=== PATIENT | female | born 1930 | race Caucasian/White ===

== ENCOUNTER 2016-09-23 23:50 | Observation (INO) | payer MEDICARE ==
--- NOTE | ~2016-09-23 | HP ---
Unit #: [id number] #: [id number] Patient: MAXWELL CAMPOVERDE [id number] [facility]. [address] [place], [place] [address] [id number] I MR#: [id number] NAME: MAXWELL CAMPOVERDE ROOM: 555 Age: 85 Sex: F Admission Date: 09/24/2016 : 1930 Attending Physician: Deshawn Sosa M.D. Primary Care Physician: Mohamud Kuhn M.D. HISTORY AND PHYSICAL HISTORY OF PRESENT ILLNESS This is a pleasant 85-year-old female who presented to the emergency room with complaints of chest pain. She has a past medical history of hypertension, hyperlipidemia, GERD, COPD, CVA, seizures and coronary artery disease. Patient underwent cardiac catheterization in August of 2009 where she was found to have a 75% proximal LAD, 60% to 70% in-stent stenosis of the mid LAD and 70% to 75% in-stent stenosis of the left circumflex. According to the patient, she did have stents to the mid LAD and mid left circumflex 2008 in [place] and underwent repeat stenting in 2009. Last echocardiogram 2007 showed an LVEF of 60% to 65%, mild AR. In 2009 the patient did undergo angioplasty with stent insertion using a drug-eluting stent to the proximal LAD and the mid LAD in-stent stenosis. She also underwent angioplasty with stent insertion of the left circumflex coronary artery. The patient states she was sitting at home watching Dancing with the Stars yesterday evening when she developed sudden onset chest pain. She describes it as aching. It was associated with shortness of breath. She denies any radiation of the pain, palpitation, syncope or near syncope or nausea and vomiting. She reports the pain lasted approximately 20 to 25 minutes when he daughter encouraged her to come to the emergency room for evaluation. In the emergency room she received sublingual nitroglycerin with relief of her pain, as well as aspirin. Initial EKG shows normal sinus rhythm, 78 beats per minute, no acute ischemic change. Point of care troponins have been negative. It is notable the patient does have some unilateral lower extremity swelling in the left lower extremity but no redness or erythema. At present she is resting in bed. She denies any further complaints of chest pain or tightness and she states she just wants to go back to her home. PAST MEDICAL HISTORY 1. Coronary artery disease. Apparently stents placed in [place] in 2009. 2. Repeat cardiac catheterization in 2009. She was noted to have proximal LAD stenosis, in-stent stenosis in the mid LAD and near stenosis in the mid circumflex. She underwent angioplasty with stent insertion in August 2009 with a drug-eluting stent for proximal LAD and mid LAD in-stent stenosis. She also underwent angioplasty with stent insertion of the circumflex coronary artery. 3. Two-D echocardiogram 2007 shows an LVEF of 60% to 65%, mild AR and Unit #: [id number] #: [id number] Patient: MAXWELL CAMPOVERDE mild LVH. 4. Hypertension. 5. Hyperlipidemia. 6. COPD. 7. History of CVA. 8. History of seizures. 9. GI bleed following angioplasty in 2009 with multiple gastric body ulcers and positive H. pylori. PAST SURGICAL HISTORY 1. Right carotid endarterectomy in 2009. 2. Cardiac cath with stent placements. 3. Left hip surgery. SOCIAL HISTORY The patient currently states she lives with her daughter. She uses a walker on occasion. She is a lifelong nonsmoker, denies any illicit drugs or alcohol. FAMILY HISTORY Family history is negative for coronary artery disease. Mother had colon cancer. ALLERGIES Penicillin, sulfa, procaine, orange juice. HOME MEDICATIONS 1. Phenobarbital 32.4 mg p.o. b.i.d. 2. Multivitamin one p.o. daily. 3. Vimpat 100 mg p.o. b.i.d. 4. Plavix 75 mg p.o. daily. 5. Aricept 10 mg p.o. q.h.s. 6. Trazodone 25 mg p.o. q.h.s. 7. Levothyroxine 25 mcg p.o. daily. 8. Zocor 20 mg p.o. daily. 9. Metoprolol tartrate 25 mg p.o. daily. 10. Hydrochlorothiazide 12.5 mg p.o. daily. However, according to the chart, the patient has not had her levothyroxine or her hydrochlorothiazide filled since July. PHYSICAL EXAMINATION GENERAL: This is an elderly female who is awake, alert and oriented. She is in no acute distress. NECK: Trachea is midline. No JVD. No thyromegaly or lymphadenopathy. No carotid bruits. She does have a scar on the right neck from prior carotid endarterectomy. CHEST: S1, S2. No murmur, gallop or rub. LUNGS: Clear to auscultation. Fine crackles in the left lower lobe. BACK: The patient does have severe kyphosis. ABDOMEN: Soft, nontender and nondistended. Bowel sounds are present. No hepatosplenomegaly or masses. EXTREMITIES: Pulses are palpable. She does have unilateral swelling, left greater than the right, and no clubbing or cyanosis. NEUROLOGIC: She is awake, alert and oriented. She moves all extremities equally, follows commands with ease. DIAGNOSTIC STUDIES Unit #: [id number] #: [id number] Patient: MAXWELL CAMPOVERDE IMAGING: Chest x-ray shows low lung volumes, large hiatal hernia and otherwise no active disease. LABORATORY: Point of care troponin negative x2. Sodium 137, potassium 4.0, chloride 104, CO2 26, BUN 14, creatinine 1.0, glucose 145, hemoglobin 10.8, hematocrit 33.1, WBC 7.3, platelet count 260. CARDIOVASCULAR: EKG shows normal sinus rhythm, rate of 78 beats per minute, QTc interval 417 msec. No acute ischemia noted. ASSESSMENT 1. Chest pain, rule out myocardial infarction. 2. Lower leg extremity swelling, rule out deep venous thrombosis. 3. Known coronary artery disease with stent insertion in proximal left anterior descending and mid left anterior descending as well as left circumflex in 2009. 4. History of right carotid endarterectomy. 5. History of seizure disorder. 6. Anemia of chronic disease. PLAN The patient has been admitted for chest pain. She does have a known history of coronary artery disease with stent placement in 2009, therefore will recommend that she undergo Lexiscan Cardiolite today. If the Lexiscan is normal, would need to consider repeat cardiac catheterization if the patient is agreeable; will also check 2D echocardiogram for assessment of LVEF and for any valvular abnormality. The patient will also get a venous Doppler of the left lower extremity due to her unilateral swelling to rule out any evidence of DVT. She will be also started on a small dose of diuretic after her stress test. For now the patient will be continued on Plavix. Will add low dose aspirin as well as check fasting lipid panel as it appear the patient is not currently on any statin therapy and does have a history of hyperlipidemia. Further recommendations to follow pending the outcome of the exercise Cardiolite. Dictated by Julia Schultz A.P.R.N. for Alondra Mackenzie/yovana TD: 09/24/2016 15:38 JOB #: [id number] HISTORY AND PHYSICAL Page 1 of 1 X Julia Schultz APRN X HISTORY AND PHYSICAL
--- NOTE | ~2016-09-23 | ST ---
Unit #: [id number] #: [id number] Patient: MAXWELL CAMPOVERDE [id number] [facility]. [address] [address] [id number] I MR#: [id number] NAME: MAXWELL CAMPOVERDE : 1930 SEX: F STUDY DATE/TIME: 09/24/2016 UNIT: C5B ROOM: [facility] STUDY DESCRIPTION: Lexiscan stress test Attending Physician: Deshawn Sosa M.D. Primary Care Physician: Mohamud Kuhn M.D. CARDIOLOGY REPORT PROCEDURE PERFORMED EKG portion of a Lexiscan Cardiolite stress test. REASON FOR EXAM History of chest pain with coronary artery disease, myocardial infarction status post PCI and stents. DISCUSSION Baseline EKG reveals sinus rhythm with a ventricular rate of 69 beats per minute. Nonspecific ST-T wave changes noted. A total of 0.4 mg of Lexiscan was injected per protocol, followed by Cardiolite. There were no complaints of chest pain. There were occasional premature ventricular complexes noted. There were no ST or T wave changes to suggest ischemia. The maximal heart rate was 122 beats per minute with a maximal blood pressure of 155/82 mmHg. The test was stopped due to protocol completion. IMPRESSION 1. Negative EKG portion of Lexiscan Cardiolite stress test. 2. There were no complaints of chest pain. 3. There were no sustained arrhythmias noted except for occasional PVCs. 4. There were no ST or T wave changes to suggest ischemia. 5. Please correlate with Cardiolite images. Dictated by... Megan Figueroa APRN for Celena Chávez M.D. TR/maggie TD: 09/25/2016 15:32 JOB #: [id number] Unit #: [id number] #: [id number] Patient: MAXWELL CAMPOVERDE CARDIOLOGY REPORT Page 1 of 1 X CARDIOLOGY REPORT
--- NOTE | ~2016-09-23 | TH ---
Unit #: [id number] #: [id number] Patient: MAXWELL CAMPOVERDE [id number] [address] [address] [id number] I MR#: [id number] NAME: MAXWELL CAMPOVERDE : 1930 SEX: F STUDY DATE/TIME: 09/24/2016 UNIT: C5B ROOM: [facility] STUDY DESCRIPTION: Imaging Study Attending Physician: Deshawn Sosa M.D. Primary Care Physician: Mohamud Kuhn M.D. CARDIOLOGY REPORT EXAM Lexiscan Cardiolite stress test, nuclear portion DESCRIPTION OF PROCEDURE AND FINDINGS Using [id number] Cardiolite rest and stress SPECT images were obtained. Multiple SPECT images were obtained in various views including horizontal and vertical long axis and short axis views of the left ventricle. Images were obtained by gated SPECT method. Patient was administered 11.0 mCi of Cardiolite at rest. Patient was administered 29.8 mCi of Cardiolite after Lexiscan infusion was completed. On the stress images there is a small area of severe decreased tracer uptake activity involving the anteroapical wall. The rest images show normal perfusion. Comparing rest and stress images there is suspicion for stress-induced ischemia involving the anteroapical wall of the left ventricle. The left ventricular ejection fraction is calculated to be 76%. There is no focal wall motion abnormality seen. CONCLUSION 1. There is suspicion for stress-induced ischemia involving the anteroapical wall of the left ventricle. 2. The left ventricular ejection fraction is calculated to be 76%. 3. There is no focal wall motion abnormality seen. 4. Abnormal Lexiscan-Cardiolite stress test. Technically limited study due to patient's body habitus. Clinical correlation is requested. Dictated by... Alondra Mackenzie TD: 09/24/2016 22:20 JOB #: [id number] Unit #: [id number] #: [id number] Patient: MAXWELL CAMPOVERDE CARDIOLOGY REPORT Page 1 of 1 X Celena Chávez MD <ELECTRONICALLY SIGNED> 12/28/16 1429 CARDIOLOGY REPORT
--- NOTE | ~2016-09-23 | EKG ---
PATIENT: MAXWELL CAMPOVERDE UNIT #: [id number] Ventricular Rate: 78 BPM Atrial Rate: 78 BPM P-R Interval: 146 ms QRS Duration: 66 ms Q-T Interval: 366 ms QTC Calculation(Bezet): 417 ms P [place]: 53 degrees Calculated R [place]: -18 degrees Calculated T [place]: 41 degrees Diagnosis Line: Normal sinus rhythm Diagnosis Line: Normal ECG Diagnosis Line: When compared with ECG of 28-JUN-2016 18:09, Diagnosis Line: No significant change was found Diagnosis Line: Confirmed by RANDI DUVALL MD ([id number]) on Diagnosis Line: 09/25/2016 5:40:26 AM INTERPRETING FRANCESCO ARCE
--- NOTE | ~2016-09-23 | DS ---
Unit #: [id number] #: [id number] Patient: MAXWELL CAMPOVERDE [id number] [facility]. [address] [place], [place] [address] [id number] I MR#: [id number] NAME: MAXWELL CAMPOVERDE ROOM: 555 Age: 85 Sex: F Admission Date: 09/24/2016 : 1930 Discharge Date: 09/25/2016 Attending Physician: Deshawn Sosa M.D. Primary Care Physician: Mohamud Kuhn M.D. DISCHARGE SUMMARY DISCHARGE DIAGNOSES 1. Chest pain, ruled out for myocardial infarction. 2. Abnormal Lexiscan Cardiolite stress test on September 24, 2016 with suspicion for stress-induced ischemia involving the anteroapical wall of the left ventricle. Left ventricular ejection fraction 76%. 3. Coronary artery disease, status post cardiac catheterization on September 25, 2016, per Dr. Sosa, revealed left main normal. Left anterior descending coronary artery with long stent extending from the proximal to mid segment. Segment of the stent in the proximal artery widely patent. Mid left anterior descending coronary artery segment of the stent 40% to 50%. Sectional area of reduction. Distal half of left anterior descending coronary artery normal. Septal perforators and diagonal branches normal. Previous stent in the proximal left anterior descending coronary artery widely patent. Left circumflex abnormal. First obtuse marginal left circumflex shows presence of an intracoronary stent with focal 70% to 75% stenosis beyond which the vessel is small in caliber but short distribution, may be a decent target. Previous stent in obtuse marginal one with distal subsection showing focal in-stent restenosis. Normal ventricular systolic function. Angiography unchanged from previous procedure seven years ago. Started on nitrates. Consider angiotensin converting enzymes inhibitor after recovery from contrast-induced nephropathy if any in six to eight weeks. 4. A 2D echocardiogram revealed normal ejection fraction with moderate aortic regurgitation. Final report pending. 5. History of multiple percutaneous coronary interventions and stents. 6. Hypertension. 7. Hyperlipidemia, uncontrolled. 8. Chronic obstructive pulmonary disease. 9. History of (1) . 10. History of seizures. 11. History of gastrointestinal bleed following angioplasty in 2009 with multiple gastric body ulcers and positive Helicobacter pylori. 12. Nonsmoker. 13. Mild dementia. 14. Hypothyroidism. 15. Mild acute on chronic diastolic congestive heart failure, resolved. 16. Cerebrovascular accident. 17. Right carotid endarterectomy. DISCHARGE MEDICATIONS 1. Vimpat 100 mg p.o. b.i.d. 2. Desyrel 25 mg p.o. nightly. Unit #: [id number] #: [id number] Patient: MAXWELL CAMPOVERDE 3. Phenobarbital 32.4 mg p.o. b.i.d. 4. Metoprolol tartrate 25 mg p.o. b.i.d. 5. Aricept 10 mg p.o. nightly. 6. Furosemide 20 mg p.o. daily, may take additional 20 mg for shortness of breath or swelling. 7. Multivitamin one tablet p.o. daily. 8. Plavix 75 mg p.o. daily. 9. Levothyroxine 25 mcg p.o. daily. 10. Isosorbide mononitrate 30 mg p.o. daily. 11. Nitroglycerin 0.4 mg sublingual for five minutes x3 p.r.n. for chest pain. 12. Potassium chloride 10 mEq p.o. daily. 13. Aspirin 81 mg p.o. daily. 14. Atorvastatin 40 mg p.o. nightly. HOSPITAL COURSE This is an 85-year-old white female previously known to our group with a past medical history of coronary artery disease status post PCI and stents in 2009 with previous stents prior to that. A 2D echocardiogram in 2007 revealed a normal ejection fraction with mild aortic regurgitation and mild LVH. Patient is known to have hypertension, hyperlipidemia, COPD, previous cerebrovascular accident, seizures, and GI bleed after previous angioplasty in 2009. She underwent a scope which found multiple gastric body ulcers and positive H. pylori. She is known to have peripheral artery disease and underwent a right carotid endarterectomy. She presented to the hospital with complaints of chest pain and swelling of the lower extremities. There was asymmetrical edema. A Doppler was obtained of the left lower extremity and was negative for DVT. Cardiac enzymes were negative and she ruled out for myocardial infarction. She was taken for a Lexiscan Cardiolite stress test. Nuclear images revealed concern for ischemia in the anteroapical wall of the left ventricle. Ejection fraction was calculated at 76%. She was recommended for cardiac catheterization due to symptoms as well as known coronary artery disease. She underwent the cardiac catheterization on September 25, 2016, per Dr. Sosa. She was found to have patent stents. There was some in-stent stenosis in the first marginal branch of the left circumflex which was about 70% to 75% which was unchanged from previous study in 2009. Mid LAD stent had 40% to 50% stenosis as well. See full report above. Ejection fraction was normal. The patient was advised to continue medical management. She was started on Imdur in addition to aspirin and Plavix for dual-antiplatelet therapy. Her Zocor was recently discontinued as an outpatient which could be due to concurrent use of antiepileptics. She will be restarted on atorvastatin which has less [id number] interactions. She is on a small dose of beta blockers. No JEANE inhibitor or ARB has been prescribed due to mild renal insufficiency. If there is no contrast-induced nephropathy, the patient could be started on an JEANE or ARB in six to eight weeks as an outpatient. There was some mild volume overload on exam when she arrived. She was given some Lasix. Her hydrochlorothiazide has been discontinued and she will be sent home on Lasix and a potassium supplement. She has been instructed to follow a low-sodium diet and fluid restriction. She may take an extra dose of Lasix for increased swelling, shortness of breath, or weight gain. Once vascular checks are completed and she ambulates, she can be discharged home. She has been instructed to follow up with her primary care provider and Dr. Sosa. DIAGNOSTIC STUDIES Unit #: [id number] #: [id number] Patient: MAXWELL CAMPOVERDE LABORATORY: White blood cell count 5.1, hemoglobin 11.3, hematocrit 34.5, platelets 261,000. Sodium 138, potassium 3.9, chloride 105, CO2 of 27, BUN 12, creatinine 1.1, glucose 89, GFR 46.4. Troponin 0.03 and 0.03. Total cholesterol 258, triglycerides 70, LDL 143, HDL 101. TSH 5.08. INR 1. IMAGING: Chest x-ray reveals low lung volumes. No acute findings. Ultrasound of the left lower extremity negative for DVT. CARDIOVASCULAR: EKG reveals sinus rhythm with no acute ST or T wave changes. PHYSICAL EXAMINATION VITAL SIGNS: Temperature 98, pulse 68, blood pressure 130/70. CONSTITUTIONAL: This is an 85-year-old white female in no acute distress. SKIN: Warm and dry. NECK: Supple. No jugular venous distention. No hepatojugular reflux. Normal carotid upstrokes. No carotid bruits auscultated. HEART: S1, S2. Regular rate and rhythm. No murmurs, rubs, or gallops. LUNGS: Bilateral breath sounds have good air entry throughout lung bazan. Respirations even and nonlabored. No rales, rhonchi, or wheezes. ABDOMEN: Soft, nontender, nondistended. Positive bowel sounds auscultated x4 quadrants. No ascites noted. EXTREMITIES: Bilateral lower extremities have no pretibial pitting edema. DP and PT pulses 2+. Capillary refill less than 3 seconds. Right wrist is soft without hematoma. DISCHARGE INSTRUCTIONS 1. The patient will be discharged home. 2. Followup with primary care provider in one to two weeks. 3. Followup with Dr. Sosa in the office in six weeks. 4. Post cath instructions provided. 5. Prescriptions provided for nitroglycerin, atorvastatin, Imdur, Lasix, and potassium. Dictated by... Megan Figueroa APRN for Alondra Mackenzie TD: 09/25/2016 17:12 JOB #: [id number] DISCHARGE SUMMARY Page 1 of 1 X X DISCHARGE SUMMARY
--- NOTE | ~2016-09-23 | CR72 ---
[facility] A Service of [facility] & [facility] RADIOLOGY TEXT RESULTS PATIENT: MAXWELL CAMPOVERDE LOCATION: [facility] [id number] : 32 UNIT #: [id number] AGE: [address]: Deshawn Sosa MD SEX: F ORDER DR: [id number] [facility] [address]. [place], [place] [address] [id number] I MR#: [id number] Acc #: [id number] NAME: MAXWELL CAMPOVERDE : 1930 SEX: F STUDY DATE/TIME: 09/23/2016 23:11 UNIT: [facility] ROOM: [facility] STUDY DESCRIPTION: CR Chest Single View Portable Attending Physician: Deshawn Sosa M.D. Ordering Physician: Santo Andersen M.D. Primary Care Physician: Mohamud Kuhn M.D. MEDICAL IMAGING REPORT This report is preliminary unless electronic signature is present EXAM Portable chest INDICATIONS Chest pain left side and shortness of air beginning today. 09/23 COMPARISON 07/10/2016. FINDINGS This portable view of the chest shows low lung volumes. There seems to be a large hiatal hernia. There are no infiltrates visible. IMPRESSION 1. Low lung volumes. 2. I believe the patient has a large hiatal hernia. 3. Otherwise, no active disease. Dictated by... Darrell Stokes M.D. THIS IS AN ELECTRONICALLY VERIFIED REPORT Darrell Stokes M.D. at 09/24/2016 5:54 AM FEL/psc TD: 09/24/2016 03:07 JOB #: [id number] MEDICAL IMAGING REPORT Page 1 of 1 COPY
--- NOTE | ~2016-09-23 | EKG ---
PATIENT: MAXWELL CAMPOVERDE UNIT #: [id number] Ventricular Rate: 71 BPM Atrial Rate: 71 BPM P-R Interval: 164 ms QRS Duration: 76 ms Q-T Interval: 436 ms QTC Calculation(Bezet): 473 ms P [place]: -3 degrees Calculated R [place]: 0 degrees Calculated T [place]: -22 degrees Diagnosis Line: Normal sinus rhythm Diagnosis Line: T wave abnormality, consider lateral ischemia Diagnosis Line: Abnormal ECG Diagnosis Line: When compared with ECG of 23-SEP-2016 22:01, Diagnosis Line: Inferior infarct is now Present Diagnosis Line: T wave inversion now evident in Inferior leads Diagnosis Line: T wave inversion now evident in Lateral leads Diagnosis Line: QT has lengthened Diagnosis Line: Confirmed by ANGELY TOUSSAINT MD ([id number]) on 09/25/2016 Diagnosis Line: 10:47:25 PM INTERPRETING MD: NORBERT BERRIOS
--- NOTE | ~2016-09-23 | US85 ---
[facility]. [facility] A Service of [facility] & [facility] RADIOLOGY TEXT RESULTS PATIENT: MAXWELL CAMPOVERDE LOCATION: [facility] [id number] : 32 UNIT #: [id number] AGE: [address]: Deshawn Sosa MD SEX: F ORDER DR: [id number] [facility] [address]. [place], [place] [address] [id number] I MR#: [id number] Acc #: [id number] NAME: MAXWELL CAMPOVERDE : 1930 SEX: F STUDY DATE/TIME: 09/24/2016 11:51 UNIT: [facility] ROOM: [facility] STUDY DESCRIPTION: US LE Veins Unilat or Ltd Stdy Attending Physician: Deshawn Sosa M.D. Ordering Physician: Celena Chávez M.D. Primary Care Physician: Mohamud Kuhn M.D. MEDICAL IMAGING REPORT This report is preliminary unless electronic signature is present EXAM Left lower extremity venous Doppler. HISTORY Swelling left foot. FINDINGS Left common femoral vein, femoral vein, popliteal vein, tibial vein demonstrate patency and compressibility. There is phasic and spontaneous flow with respiration and augmentation. Proximal and distal greater saphenous vein is patent and compressible. IMPRESSION No evidence of left lower extremity deep vein thrombosis. Dictated by... Constanza Dodson M.D. THIS IS AN ELECTRONICALLY VERIFIED REPORT Constanza Dodson M.D. at 10/02/2016 11:49 AM Randee TD: 09/24/2016 14:28 JOB #: [id number] MEDICAL IMAGING REPORT Page 1 of 1 COPY
[2016-09-23 23:47] LABS: POC - CKMB <1.0 ng/mL (0.0-7.9); POC - TROPONIN <0.05 ng/mL (<=0.05)
[~2016-09-23 23:50] MED LIST: ANTIVERT PO; ASPIRIN PO; ASPIRIN81 M1 PO; ASPIRIN81 M2 PO; COLACE PO; DILANTIN; DILANTIN PO; FLEXERIL10 MG PO; HYDROCODON-ACE1 EAC7 PO; LEVAQUIN PO; LOPRESSOR PO; LORTAB 5/500 TA1 TA2 PO; MACROBID100 M1 DOB; METOPROLOL TAR25 MG PO; MULTI VITAMIN1 EACH PO; MULTIVITAMIN WI1 CAP PO; NITROQUICK0.4 MG SL; ORUDIS75 M1 PO; PHENOBARB PO; PHENOBARBITAL15 MG PO; PHENOBARBITAL16.2 MG PO; PLAVIX PO; PRILOSEC20 MG PO; SENNA-S TABLE1 UDTAB PO; SYNTHROID0.05 MG PO; ULTRAM PO; VIMPAT PO; VIMPAT50 MG PO; VITAMIN D1000 UNIT PO; ZOCOR PO; ZOCOR20 MG PO
[2016-09-23 23:53] LABS: BASOPHIL# 0.1 X10e3 (0-0.3); BASOPHIL% 1.2 % (0-2.5); EOSINOPHIL# 0.1 X10e3 (0-0.7); EOSINOPHIL% 0.8 % (0.0-7.0); HEMATOCRIT 33.1 % (35.0-45.0); HEMOGLOBIN 10.8 gm/dL (12.0-16.0); LYMPHOCYTE# 1.1 X10e3 (1.0-3.5); LYMPHOCYTE% 15.1 % (17.0-45.0); MEAN CELL VOLUME 92.2 FL (83-96); MEAN CORPUSCULAR HEMOGLOBIN 30.1 PG (28-34); MEAN CORPUSCULAR HGB CONC 32.6 g/dL (30-36); MEAN PLATELET VOLUME 7.2 FL (6.5-11.5); MONOCYTE# 0.7 X10e3 (0-1.0); MONOCYTE% 9.4 % (3.0-12.0); NEUTROPHIL# 5.4 X10e3 (1.5-7.1); NEUTROPHIL% 73.5 % (40-75); PLATELET COUNT 260 X10e3 (140-420); RED BLOOD COUNT 3.59 X10e (3.90-5.30); RED CELL DISTRIBUTION WIDTH 14.2 % (11.0-15.5); WHITE BLOOD COUNT 7.3 X10e3 (4.0-10.5)
[2016-09-23 23:59] LABS: DIFF IND NO
[2016-09-24 00:08] LABS: PROTHROMBIN TIME (PATIENT) 10.5 SECONDS (9.6-11.5)
[2016-09-24 00:11] LABS: ALBUMIN SERUM 3.4 g/dL (3.5-5.0); ALKALINE PHOSPHATASE 158 U/L (32-92); ALT (SGPT) 12 U/L (10-40); AST (SGOT) 19 U/L (10-42); BILIRUBIN,TOTAL 0.5 mg/dL (0.2-2.0); BLOOD UREA NITROGEN 14 mg/dL (9-23); CALCIUM SERUM 9.5 mg/dL (8.4-10.2); CARBON DIOXIDE 26 mmol/L (22-31); CHLORIDE 104 mmol/L (100-111); GLOM FILT RATE Estimated 52.1 mL/min (>60); GLUCOSE FASTING 145 mg/dL (70-110); PROTEIN TOTAL SERUM 6.2 g/dL (6.0-8.3); SODIUM 137 mmol/L (135-145)
[2016-09-24 00:12] LABS: BILIRUBIN, DIRECT <0.1 mg/dL (0.0-0.2); BILIRUBIN,INDIRECT 0.4 mg/dL (0.0-0.9)
[2016-09-24] MEDS ORDERED: ARICEPT PO (00:44)
[2016-09-24 00:46] LABS: POC - CKMB <1.0 ng/mL (0.0-7.9); POC - TROPONIN <0.05 ng/mL (<=0.05)
[2016-09-24] MEDS ORDERED: DESYREL50 MG PO (04:22)
[2016-09-24] MEDS ORDERED: LEVOTHYROXINE25 MCG PO (04:23)
[2016-09-24] MEDS ORDERED: ZOCOR20 MG PO (04:23)
[2016-09-24] MEDS ORDERED: METOPROLOL TAR25 MG PO (04:23)
[2016-09-24] MEDS ORDERED: HYDROCHLOROTH12.5 MG PO (04:24)
[2016-09-24 08:25] LABS: BASOPHIL# 0.1 X10e3 (0-0.3); BASOPHIL% 1.4 % (0-2.5); EOSINOPHIL# 0.1 X10e3 (0-0.7); EOSINOPHIL% 1.6 % (0.0-7.0); HEMATOCRIT 35.6 % (35.0-45.0); HEMOGLOBIN 11.5 gm/dL (12.0-16.0); LYMPHOCYTE# 1.6 X10e3 (1.0-3.5); LYMPHOCYTE% 31.6 % (17.0-45.0); MEAN CELL VOLUME 91.9 FL (83-96); MEAN CORPUSCULAR HEMOGLOBIN 29.6 PG (28-34); MEAN CORPUSCULAR HGB CONC 32.2 g/dL (30-36); MEAN PLATELET VOLUME 7.1 FL (6.5-11.5); MONOCYTE# 0.5 X10e3 (0-1.0); NEUTROPHIL# 2.8 X10e3 (1.5-7.1); NEUTROPHIL% 55.4 % (40-75); PLATELET COUNT 264 X10e3 (140-420); RED BLOOD COUNT 3.88 X10e (3.90-5.30); RED CELL DISTRIBUTION WIDTH 14.4 % (11.0-15.5)
[2016-09-24 08:27] LABS: DIFF IND NO
[2016-09-24 08:47] LABS: BUN/CREATININE RATIO 14.44; CALCIUM SERUM 10.1 mg/dL (8.4-10.2); CREATININE SERUM 0.9 mg/dL (0.6-1.4); GLOM FILT RATE Estimated 59.2 mL/min (>60); POTASSIUM 3.7 mmol/L (3.5-5.1)
[2016-09-24 09:07] LABS: CK TOTAL 44 IU/L (26-140)
[2016-09-24 17:05] LABS: %MB 3.6 % (0.0-4.0); MB 2.4 ng/ml
[2016-09-25 06:08] LABS: PARTIAL THROMBOPLASTIN TIME 22.5 SECONDS (23.5-31.3); PROTHROMBIN TIME (PATIENT) 10.9 SECONDS (9.6-11.5)
[2016-09-25 06:11] LABS: HEMATOCRIT 34.5 % (35.0-45.0); HEMOGLOBIN 11.3 gm/dL (12.0-16.0); MEAN CELL VOLUME 91.2 FL (83-96); MEAN CORPUSCULAR HEMOGLOBIN 29.9 PG (28-34); MEAN CORPUSCULAR HGB CONC 32.8 g/dL (30-36); MEAN PLATELET VOLUME 7.1 FL (6.5-11.5); RED BLOOD COUNT 3.78 X10e (3.90-5.30); RED CELL DISTRIBUTION WIDTH 14.3 % (11.0-15.5); WHITE BLOOD COUNT 5.1 X10e3 (4.0-10.5)
[2016-09-25 06:55] LABS: BUN/CREATININE RATIO 10.9; CALCIUM SERUM 9.8 mg/dL (8.4-10.2); CREATININE SERUM 1.1 mg/dL (0.6-1.4); GLOM FILT RATE Estimated 46.4 mL/min (>60); POTASSIUM 3.9 mmol/L (3.5-5.1)
[2016-09-25] MEDS ORDERED: LASIX20 MG PO (18:29)
[2016-09-25] MEDS ORDERED: IMDUR-ER30 M1 PO (18:30)
[2016-09-25] MEDS ORDERED: NITROGLYGERIN0.4 MG SL (18:31)
[2016-09-25] MEDS ORDERED: ASPIRIN81 MG PO (18:32)
[2016-09-25] MEDS ORDERED: K-DUR10 MEQ PO (18:32)
[2016-09-25] MEDS ORDERED: LIPITOR40 MG PO (18:33)
[2017-01-07] MEDS ORDERED: VITAMIN D31000 UNIT PO (14:30)
[2017-01-07] MEDS ORDERED: NAMZARIC 14 MG1 EACH PO (14:31)
[2017-02-27] MEDS ORDERED: NAMZARIC 28 MG1 EACH PO (15:32)
[2017-02-27] MEDS ORDERED: LASIX20 MG PO (15:32)
[2017-02-27] MEDS ORDERED: IMDUR PO (15:32)
[2017-02-27] MEDS ORDERED: LIPITOR PO (15:32)
[2017-02-27] MEDS ORDERED: PATIENT'S PHARMACY (15:32)
[2017-02-27] MEDS ORDERED: KCL PO (15:33)
[2017-02-27] MEDS ORDERED: CLOPIDOGREL75 MG PO (15:33)
[2017-02-27] MEDS ORDERED: DONEPEZIL HCL10 MG PO (15:33)
[2017-02-27] MEDS ORDERED: PHENOBARB PO (15:33)
[2017-02-27] MEDS ORDERED: PANTOPRAZOLE SO40 MG PO (15:33)
[2017-02-27] MEDS ORDERED: VIMPAT100 MG PO (15:33)
== END 2016-09-25 19:33 | disposition home or self-care (01) ==
LOC: CED 23:50 → CEDOF 09-24 00:50 → C5B 09-24 02:36
PROVIDERS: Emergency Medicine; Internal Medicine Cardiovascular Disease; Nurse Practitioner
DX: I25.119 Atherosclerotic heart disease of native coronary artery with unspecified angina pectoris (principal); T82.855D Stenosis of coronary artery stent, subsequent encounter; Z88.0 Allergy status to penicillin; Z88.2 Allergy status to sulfonamides; R94.39 Abnormal result of other cardiovascular function study; I35.1 Nonrheumatic aortic (valve) insufficiency; Z95.5 Presence of coronary angioplasty implant and graft; I10 Essential (primary) hypertension; E78.5 Hyperlipidemia, unspecified; J44.9 Chronic obstructive pulmonary disease, unspecified; F03.90 Unspecified dementia, unspecified severity, without behavioral disturbance, psychotic disturbance, mood disturbance, and anxiety; E03.9 Hypothyroidism, unspecified; I50.23 Acute on chronic systolic (congestive) heart failure; D63.8 Anemia in other chronic diseases classified elsewhere; M79.89 Other specified soft tissue disorders; Z86.73 Personal history of transient ischemic attack (TIA), and cerebral infarction without residual deficits; Z80.0 Family history of malignant neoplasm of digestive organs; Z79.02 Long term (current) use of antithrombotics/antiplatelets
CPT/HCPCS: 36415; 71010; 78452; 80048; 80061; 80076; 82550; 82553; 84443; 84484; 85025; 85027; 85610; 85730; 93005; 93017; 93306; 93971; 96372; 99285; A9500; C1769; C1887; C1894; G0378; J1644; J1650; J2250; J2785; J3010

== ENCOUNTER → 2016-10-17 | Outpatient (CLI) | payer MEDICARE ==
[~2016-10-17] MED LIST changes: +ACETAMINOPHEN650 M1 PO; +ARICEPT PO; +ASPIRIN EC81 M1 PO; +ASPIRIN81 MG PO; +CLOPIDOGREL75 MG PO; +COMPLETE MULTI1 EAC1 PO; +DESYREL50 MG PO; +DONEPEZIL HCL10 MG PO; +HYDROCHLOROTH12.5 MG PO; +IMDUR PO; +IMDUR-ER30 M1 PO; +K-DUR10 MEQ PO; +KCL PO; +KLOR-CON PO; +LASIX20 MG PO; +LEVOTHYROXINE25 MCG PO; +LIPITOR PO; +LIPITOR40 MG PO; +MELATONIN1 M1 SL; +NAMENDA XR7 MG PO; +NAMZARIC 14 MG1 EACH PO; +NAMZARIC 28 MG1 EACH PO; +NITROGLYGERIN0.4 MG SL; +PANTOPRAZOLE SO40 MG PO; +PATIENT'S PHARMACY; +PROTONIX PO; +VICODIN PO; +VIMPAT100 MG PO; +VITAMIN D31000 UNIT PO
[2016-10-17 13:47] LABS: BUN/CREATININE RATIO 16.36; CALCIUM SERUM 10.3 mg/dL (8.4-10.2); CREATININE SERUM 1.1 mg/dL (0.6-1.4); GLOM FILT RATE Estimated 46.4 mL/min (>60); POTASSIUM 4.2 mmol/L (3.5-5.1)
== END | disposition home or self-care (01) ==
LOC: SLAB 12:51
PROVIDERS: Internal Medicine Cardiovascular Disease
DX: R94.4 Abnormal results of kidney function studies (principal)
CPT/HCPCS: 36415; 80048

== ENCOUNTER 2016-11-15 13:09 | Observation (INO) | payer MEDICARE ==
--- NOTE | ~2016-11-15 | MR18 ---
[facility] A Service of [facility] & [facility] RADIOLOGY TEXT RESULTS PATIENT: MAXWELL CAMPOVERDE LOCATION: C3A 303-01 : 32 UNIT #: [id number] AGE: [address]: Jaya Muniz MD SEX: F ORDER DR: [id number] [facility] [address] [place], [place] [address] [id number] I MR#: [id number] Acc #: [id number] NAME: MAXWELL CAMPOVERDE : 1930 SEX: F STUDY DATE/TIME: 11/15/2016 19:27 UNIT: CEDOF ROOM: 52736 STUDY DESCRIPTION: MR Brain Wo Contrast Attending Physician: Kendrick Zamorano M.D. Ordering Physician: Madai Webster M.D. Primary Care Physician: Mohamud Kuhn M.D. MRI CENTER REPORT This report is preliminary unless electronic signature is present. EXAM MRI of the brain without contrast, dated 11/15/16. COMPARISON CT angiogram head and neck with contrast, dated 11/15/16. HISTORY Left arm and left leg weakness since this morning. History of epilepsy. FINDINGS Multisequence, multiplanar imaging of the brain was obtained without contrast. As per technologist notes, patient kept moving and would not cooperate. Significant motion artifact is noted in all the sequences to varying degrees. Axial T2 STIR was repeated. There are multiple hyperintense T2-signal lesions noted in the periventricular white matter and to a lesser degree in the subcortical white matter. There is a large area of T2 signal in the right parieto-occipital lobe and posterior right temporal lobe in the right cerebral hemisphere. Mild increased T2 signal changes are noted in the superior aspect of bilateral basal ganglia. There is prominence of CSF noted around bilateral cerebellar hemispheres in the posterior fossa. It is also noted in bifrontal parietal lobes along the convexity. Coronal T2 sequence through the hippocampal formation is nondiagnostic and hippocampi could not be clearly seen. IMPRESSION 1. The study is almost nondiagnostic given the significant motion artifact in all the sequences. The motion artifact varies based on this sequence. STIR, axial T2 sequence was repeated and one of the sequences relatively with less motion. 2. No obvious acute stroke, hydrocephalus or large mass could be identified. 3. Scattered multiple hyperintense T2-signal lesions are noted in the brain predominately involving the supratentorial white matter, and STS. [facility] A Service of [facility] & [facility] RADIOLOGY TEXT RESULTS PATIENT: MAXWELL CAMPOVERDE LOCATION: C3A 303-01 : 32 UNIT #: [id number] AGE: [address]: Jaya Muniz MD SEX: F ORDER DR: also in the right parietooccipital lobe involving the cortex and underlying white matter. It extends to the posterior right temporal lobe. These are likely areas of old insults. Correlate with history. 4. Prominence of CSF is noted superficial to bilateral cerebellar hemispheres. It could be related to chronic seizure medication use, particularly given the history of epilepsy. It is a nonspecific finding, and it is probably related to some atrophy of the cerebellar hemispheres. Dictated by... Flora Starks M.D. THIS IS AN ELECTRONICALLY VERIFIED REPORT Flora Starks M.D. at 11/18/2016 5:07 PM BEVERLY/kita TD: 11/15/2016 23:48 JOB #: [id number] MRI CENTER REPORT Page 1 of 1 COPY
--- NOTE | ~2016-11-15 | CT23 ---
[facility] A Service of [facility] & [facility] RADIOLOGY TEXT RESULTS PATIENT: MAXWELL CAMPOVERDE LOCATION: [facility] 303-01 : 32 UNIT #: [id number] AGE: [address]: Jaya Muniz MD SEX: F ORDER DR: [id number] [facility] [address], [place] [address] [id number] I MR#: [id number] Acc #: [id number] NAME: MAXWELL CAMPOVERDE : 1930 SEX: F STUDY DATE/TIME: 11/15/2016 19:00 UNIT: CEDOF ROOM: 17170 STUDY DESCRIPTION: CT Angio Neck Attending Physician: Kendrick Zamorano M.D. Ordering Physician: Madai Webster M.D. Primary Care Physician: Mohamud Kuhn M.D. MEDICAL IMAGING REPORT This report is preliminary unless electronic signature is present EXAM CT angio neck HISTORY Please see CT angio head for results. Dictated by... Flora Starks M.D. THIS IS AN ELECTRONICALLY VERIFIED REPORT Flora Starks M.D. at 11/18/2016 5:26 PM CPR/ea TD: 11/15/2016 23:44 JOB #: [id number] MEDICAL IMAGING REPORT Page 1 of 1 COPY
--- NOTE | ~2016-11-15 | DS ---
Unit #: [id number] #: [id number] Patient: MAXWELL CAMPOVERDE [id number] [address] [address] [id number] I MR#: [id number] NAME: MAXWELL CAMPOVERDE ROOM: 303 Age: 86 Sex: F Admission Date: 11/15/2016 : 1930 Discharge Date: 11/17/2016 Attending Physician: Jaya Muniz M.D. Primary Care Physician: Mohamud Kuhn M.D. DISCHARGE SUMMARY DIAGNOSIS ON ADMISSION Transient ischemic attack. DIAGNOSES ON DISCHARGE 1. Possible transient ischemic attack. 2. Hypertension. 3. History of peripheral arterial disease with bilateral carotid artery disease. 4. Valvular heart disease with moderate aortic regurgitation. 5. Coronary artery disease, status post stent. 6. Hypertension. 7. Dyslipidemia. 8. Chronic obstructive pulmonary disease. 9. Seizure disorder. 10. History of gastrointestinal bleeding with gastric ulcers. 11. Mild dementia. 12. Diastolic heart failure. 13. Hypothyroidism. CONSULTATION Dr. Sevilla - Neurology. LABS AND PROCEDURES DONE The patient's creatinine is 0.9, sodium 139, potassium is 3.8. AST and ALT within normal limits. The patient's B12 level is 397. Folate level is greater than 23. Total cholesterol is 184. LDL is 78, HDL is 99, TSH is 5.08. The patient's hemoglobin A1c is 5.4. WBC 5.4, hemoglobin 11.8, platelet count is 255. Urinalysis was negative. The patient had MRI of the brain done, which was nondiagnostic given the significant motion artifact, but there was no obvious new stroke or large mass identified. CT angiogram of head and neck revealed less than 70% stenosis in bilateral internal carotid arteries, worse on right than left. Chest x-ray revealed no acute pulmonary density. Unit #: [id number] #: [id number] Patient: MAXWELL CAMPOVERDE HOSPITAL COURSE 56-year-old female was admitted to [facility] with left sided weakness which has resolved. Patient was seen by neurology in consultation and it was found that patient probably had TIA. Dr. Sevilla has added enteric coated aspirin and has increased Lipitor to 80 mg daily. He has advised patient to follow up with Dr. Sanchez on an outpatient basis. Today, patient is comfortable, is not in any acute distress. He wants to go home. RECOMMENDATIONS ON DISCHARGE 1. Condition stable. 2. Activity as tolerated. MEDICATIONS 1. Lipitor 80 mg p.o. q. h.s. 2. Vimpat 100 mg p.o. b.i.d. 3. Phenobarbital 32.4 mg p.o. b.i.d. 4. Aricept 10 mg p.o. q. h.s. 5. Lasix 20 mg p.o. q. h.s. 6. Multivitamin, one tablet p.o. daily. 7. Melatonin 1 mg p.o. q. h.s. p.r.n. for sleep. 8. Enteric coated aspirin 81 mg p.o. daily. 9. Plavix 75 mg p.o. daily. 10. Potassium 10 mEq p.o. daily. 11. Imdur ER 30 mg p.o. daily. DISPOSITION The patient will be discharged home with follow up on an outpatient basis. FOLLOWUP 1. The patient is advised to follow up with primary care physician in one week and follow up with Dr. Sanchez in three to four weeks. 2. Patient is to have (1) lipid profile and LFTs with primary care physician in four to six weeks. 3. Patient is advised to call primary care physician or go to ER if her condition changes. Dictated by... Alondra Shahid/zeke TD: 11/17/2016 11:58 JOB #: [id number] CC: Nnamdi Sanchez M.D. Unit #: [id number] #: [id number] Patient: MAXWELL CAMPOVERDE DISCHARGE SUMMARY Page 1 of 1 X Jaya Muniz MD X DISCHARGE SUMMARY
--- NOTE | ~2016-11-15 | CR72 ---
[facility] A Service of [facility] & [facility] RADIOLOGY TEXT RESULTS PATIENT: MAXWELL CAMPOVERDE LOCATION: [facility] 303-01 : 32 UNIT #: [id number] AGE: [address]: Jaya Muniz MD SEX: F ORDER DR: [id number] [facility] [address] [place], [place] [address] [id number] E MR#: [id number] Acc #: [id number] NAME: MAXWELL CAMPOVERDE : 1930 SEX: F STUDY DATE/TIME: 11/15/2016 13:48 UNIT: GAVINO ROOM: STUDY DESCRIPTION: CR Chest Single View Portable Attending Physician: Madai Webster M.D. Ordering Physician: Ramon Maria M.D. Primary Care Physician: Mohamud Kuhn M.D. MEDICAL IMAGING REPORT This report is preliminary unless electronic signature is present EXAM Chest portable, 11/15/16, 1348 hours. CLINICAL HISTORY Altered mental status with shortness of air today. COMPARISON 09/23/16 FINDINGS Portable upright chest demonstrates low lung volumes. There is stable moderate cardiomegaly and tortuous aorta. There is retrocardiac density and lucency suggesting a moderately large hiatal hernia. There is no definite acute pulmonary density or pleural effusion. IMPRESSION 1. Stable cardiomegaly, tortuous aorta likely hiatal hernia. 2. No acute pulmonary densities or pleural effusions. Benign calcified granulomatous changes are present. Dictated by... Lidya Adam M.D. THIS IS AN ELECTRONICALLY VERIFIED REPORT Lidya Adam M.D. at 11/18/2016 9:07 AM MALICK/kita TD: 11/15/2016 16:00 JOB #: [id number] MEDICAL IMAGING REPORT Page 1 of 1 COPY
--- NOTE | ~2016-11-15 | CT17 ---
[facility] A Service of [facility] & [facility] RADIOLOGY TEXT RESULTS PATIENT: MAXWELL CAMPOVERDE LOCATION: C3A 303-01 : 32 UNIT #: [id number] AGE: [address]: Jaya Muniz MD SEX: F ORDER DR: [id number] [facility] [address] [place], [place] [address] [id number] E MR#: [id number] Acc #: [id number] NAME: MAXWELL CAMPOVERDE : 1930 SEX: F STUDY DATE/TIME: 11/15/2016 19:00 UNIT: [facility] ROOM: STUDY DESCRIPTION: CT Angio Head Attending Physician: Madai Webster M.D. Ordering Physician: Madai Webster M.D. Primary Care Physician: Mohamud Kuhn M.D. MEDICAL IMAGING REPORT This report is preliminary unless electronic signature is present EXAM CT angiogram of the head and neck with contrast dated 11/15/2016. COMPARISON Carotid ultrasound study dated 09/30/2007, CTA neck dated 03/06/2011. No prior MRA or CTA head studies are available. HISTORY Left-sided weakness today. TECHNIQUE This CT exam was performed with one or more of the following radiation dose reduction techniques: automatic exposure control, adjustment of mA and/or kV according to patient size, and iterative reconstruction. FINDINGS CT angiogram of the head and neck was obtained with IV contrast in the axial plane followed by reformats of the [place] of [place] in all 3 planes along with 3-D MIP tumbling images in 2 planes, surface rendered snap shot images of the brain, curved reformats of the neck, carotid and vertebral arteries. These images were obtained as per the protocol. Neck: Three-vessel aortic arch is seen. Bilateral common carotid arteries demonstrate no significant abnormality. There is irregularity noted along the course of the right internal carotid artery with a focal 5 mm short segment of right internal carotid artery about 2.5 cm from its origin demonstrating moderate stenosis. The stenosis measured per NASCET criteria is about 50% to 55%. There is also mild irregularity with atherosclerotic plaque noted along the left internal carotid artery with less than 50% stenosis involving any given segment. Minimal decreased flow in the distal right ICA is suspected in the mid to distal cervical portions and in the intracranial regions, too. [facility] A Service of [facility] & [facility] RADIOLOGY TEXT RESULTS PATIENT: MAXWELL CAMPOVERDE LOCATION: C3A 303-01 : 32 UNIT #: [id number] AGE: [address]: Jaya Muniz MD SEX: F ORDER DR: Bilateral external carotid arteries demonstrate normal expected course and flow. The left internal carotid artery undergoes an asymmetrical medially deviated course. Bilateral vertebral arteries demonstrate expected course, caliber and flow. The curved reformats of the right vertebral artery demonstrate mild irregularities/decreased contrast enhancement involving a short less than 5 mm segment at the level of C7-T1. It is not well correlated in the source images and it is probably nonspecific. Head: Bilateral intracranial internal carotid arteries demonstrate slightly decreased caliber of the right ICA when compared to the left, particularly in the petrous segment. Mild atherosclerotic plaques are noted in bilateral cavernous and supraclinoid ICA. A1 segment of the right anterior cerebral artery is not seen. It is probably very hypoplastic to aplastic. Mild irregularities are noted along the course of bilateral A2 segments particularly on the right. Small ACOM is noted which cross fills from the left WALDO to the right A2. Bilateral middle cerebral arteries appear to be symmetrical and grossly unremarkable. The left PCOM feeds P2 and distal portions of the left FLOOR LAYER HELPER. Only a tiny portion of the proximal left P1 segment demonstrates flow, but the remaining portion of the left P1 segment is not clearly seen. Visualized right posterior cerebral artery, proximal bilateral superior cerebellar arteries, basilar artery are unremarkable. Bilateral vertebral arteries demonstrate expected course with mild atherosclerotic plaques in bilateral V4 segments, involving 2 tandem portions of the right and 1 focal tiny segment of the left. There appears to be decrease in flow of the right vertebral artery after the takeoff of the right PICA. Dural venous sinuses are patent without filling defects to suggest thrombosis. Extravascular soft tissues: No obvious enhancing large mass. Refer to MRI brain from today for description of the brain findings. There are scattered hypodensities noted in the brain particularly in the right inferior parietal and posterior temporal lobes on the right. Nasal septum is deviated to the left with an apical spur. Degenerative changes are noted in the cervical spine. IMPRESSION 1. Less than 70% stenosis is seen in bilateral internal carotid arteries, worse on the right when compared to the left. 2. Next there are irregularities noted in the vessels of the carotid and vertebral arteries in the neck and head relating to atherosclerotic plaques particularly given the patients age of 86 with multiple short segments of varying degrees of stenosis. 3. A1 segment of the right WALDO is not seen with the ACOM cross filling from the left WALDO to the right A2 giving rise to a congenital appearance. A1 segment is probably very hypoplastic to aplastic. 4. Tandem short segments of mild stenosis is seen in bilateral A2 segments particularly in the right. [facility] A Service of [facility] RADIOLOGY TEXT RESULTS PATIENT: MAXWELL CAMPOVERDE LOCATION: [facility] 303-01 : 32 UNIT #: [id number] AGE: [address]: Jaya Muniz MD SEX: F ORDER DR: 5. Left PCOM predominantly feeds P2 and distal portions of the left F[employer]OR L[employer]ER HELPER. A tiny proximal portion of the left P1 segment arising from the basilar artery is noted with flow. The remaining P1 segment is not seen. It could be congenital hypoplasia and/or not associated with some stenosis. The distal portions of the left FLOOR LAYER HELPER from P2 segment appear to be symmetrical and within normal limits. 6. No significant aneurysm or AVM. 7. There appears to be diffuse mild decrease in caliber of the right internal carotid artery distal to the stenosis in the cervical portion extending to the petrous segment and to a lesser degree in the intracranial ICA. 8. Atherosclerotic plaques are noted in bilateral V4 segments of the vertebral arteries. It is slightly prominent in the right V4 segment involving 2 tandem short segments. Distal to the takeoff of the right PICA, there appears to be decrease in caliber of the right vertebral artery. Dictated by... Flora Starks M.D. THIS IS AN ELECTRONICALLY VERIFIED REPORT Flora Starks M.D. at 11/18/2016 5:06 PM CPR/susan TD: 11/15/2016 23:30 JOB #: [id number] MEDICAL IMAGING REPORT Page 1 of 1 COPY
--- NOTE | ~2016-11-15 | EKG ---
PATIENT: MAXWELL CAMPOVERDE UNIT #: [id number] Ventricular Rate: 69 BPM Atrial Rate: 69 BPM P-R Interval: 178 ms QRS Duration: 70 ms Q-T Interval: 396 ms QTC Calculation(Bezet): 424 ms P [place]: 14 degrees Calculated R [place]: -17 degrees Calculated T [place]: 40 degrees Diagnosis Line: Normal sinus rhythm with sinus arrhythmia Diagnosis Line: Normal ECG Diagnosis Line: When compared with ECG of 25-SEP-2016 05:32, Diagnosis Line: Criteria for Inferior infarct are no longer Diagnosis Line: Present Diagnosis Line: Nonspecific T wave abnormality has replaced Diagnosis Line: inverted T waves in Inferior leads Diagnosis Line: T wave inversion no longer evident in Lateral Diagnosis Line: leads Diagnosis Line: Confirmed by ANGELY TOUSSAINT MD ([id number]) on 11/17/2016 Diagnosis Line: 4:26:51 PM INTERPRETING MD: NORBERT BERRIOS
--- NOTE | ~2016-11-15 | HP ---
Unit #: [id number] #: [id number] Patient: MAXWELL CAMPOVERDE [id number] [address] [address] [id number] I MR#: [id number] NAME: MAXWELL CAMPOVERDE ROOM: 65683 Age: Sex: F Admission Date: 11/15/2016 : 1930 Attending Physician: Kendrick Zamorano M.D. Primary Care Physician: Mohamud Kuhn M.D. HISTORY AND PHYSICAL CHIEF COMPLAINT Change in mental status. The patient was acting differently and had left-sided weakness which has resolved. HISTORY OF PRESENT ILLNESS This is an 86-year-old female who has a history of multiple medical problems, coronary artery disease, hypertension, dyslipidemia, chronic obstructive pulmonary disease, history of seizures, history of GI bleed, hypothyroid, dementia, diastolic congestive heart failure, history of CVA in the past, peripheral vascular disease with previous right carotid endarterectomy. She was brought to the emergency room. As per family the patient was acting different and also having some left-sided weakness. Symptoms lasted for a few hours. In the emergency room she declined and she said she was acting differently, but symptoms resolved. She had an episode of confusion which has resolved. Currently she is not complaining of any chest pain. No diaphoresis. No palpitations. No cough. No wheezing. No weakness. No other complaints. PAST MEDICAL HISTORY 1. History of coronary artery disease, status post stent in 2009. She had abnormal stress test in 09/2016. She had repeat cardiac catheterization which shows patent stent to the LAD. First obtuse marginal, left circumflex intracoronary stent with focal 70%-75% stenosis. 2. History of moderate aortic stenosis. 3. Hypertension. 4. Dyslipidemia. 5. History of chronic obstructive pulmonary disease. 6. History of seizures. 7. History of GI bleed with a gastric body ulcer. 8. Hypothyroid. 9. Mild dementia. 10. History of congestive heart failure. 11. History of CVA in the past. 12. Previous peripheral vascular disease with previous right carotid endarterectomy. PAST SURGICAL HISTORY 1. History of cardiac catheterization and stent. 2. Left hip surgery. 3. Right carotid endarterectomy in 2009. Unit #: [id number] #: [id number] Patient: MAXWELL CAMPOVERDE SOCIAL HISTORY The patient lives with her daughter. She uses a walker. She is a lifelong nonsmoker. No illicit drug use. FAMILY HISTORY Negative for coronary artery disease. Mother had colon cancer. ALLERGIES She is allergic to penicillin, sulfa, procaine, orange juice. HOME MEDICATIONS 1. Aspirin 81 mg daily. 2. Potassium chloride 10 mEq daily. 3. Multivitamin 1 tablet daily. 4. Lasix 20 mg daily. 5. Melatonin 1 mg at bedtime. 6. Aricept 10 mg daily. 7. Plavix 75 mg daily. 8. Vimpat 100 mg b.i.d. 9. Imdur 30 mg daily. 10. Lipitor 40 mg daily. 11. Phenobarbital 32.4 mg b.i.d. REVIEW OF SYSTEMS Negative except as per history of present illness. PHYSICAL EXAMINATION GENERAL: Elderly female lying in bed comfortably. Currently not in any distress. She is alert, awake and oriented times two. VITALS: Currently, temperature 99, heart rate 86, respiratory rate 18, blood pressure 120/51, oxygen saturation 96%. HEENT: Head is normocephalic, atraumatic. NECK: Supple. No jugular venous distension. No thyromegaly. Trachea midline. No carotid bruit. Scar on the right side of the neck from previous carotid endarterectomy. LUNGS: Clear to auscultation. No rhonchi. No wheezing. HEART: S1 and S2. Regular rate and rhythm. ABDOMEN: Soft, nontender and nondistended. Bowel sounds positive. EXTREMITIES: Inspection normal. No cyanosis, clubbing or edema. NEUROLOGIC: She is alert and oriented. Cranial nerves II through XII intact. She is moving all extremities. DIAGNOSTIC STUDIES IMAGING: CT of the head shows chronic ischemic changes. No acute abnormality. Chest x-ray shows no acute findings. Benign calcified granulomatous changes. MRI of the head unremarkable. CTA of the head and neck shows less than 70% stenosis seen in bilateral internal carotid arteries. LABORATORY: Urinalysis is negative. Chem. 7, sodium 135, potassium 3.8, chloride 102, glucose 102, BUN 16, creatinine 1. LFTs, alkaline phosphatase 145, otherwise unremarkable. INR 1. White blood cell count Unit #: [id number] #: [id number] Patient: GILLES,CORINA 8, hemoglobin 11, hematocrit 33, platelets 263. ASSESSMENT 1. TIA, symptoms resolved. Will observe overnight. Monitored bed. Ask neurology to evaluate. 2. Peripheral vascular disease . Please note: This report has been placed on the patient's electronic medical record in an incomplete status following multiple physician notifications for a completion without a response or resolution. Dictated by Alondra Vargas TD: 11/16/2016 09:36 JOB #: [id number] HISTORY AND PHYSICAL Page 1 of 1 X X HISTORY AND PHYSICAL
--- NOTE | ~2016-11-15 | CO ---
Unit #: [id number] #: [id number] Patient: MAXWELL CAMPOVERDE [id number] [facility] [address] [facility]. [place], [place] [address] [id number] I MR#: [id number] NAME: MAXWELL CAMPOVERDE ROOM: 303 Age: 86 Sex: F Admission Date: 11/15/2016 : 1930 Attending Physician: Jaya Muniz M.D. Primary Care Physician: Mohamud Kuhn M.D. Requesting Physician: Eric Cabrales M.D. Consultation Date: 11/16/2016 CONSULTATION REPORT REASON FOR CONSULTATION Feeling weak. PATIENT IDENTIFICATION This is an 86-year-old right-handed white female who is evaluated in room 9 in the emergency room at [facility]. SOURCE OF INFORMATION Patient and the medical records including previous medical records. PROBLEM LIST 1. She came in for feeling strange. 2. She has history of coronary artery disease. 3. Mild left ventricular hypertrophy. 4. Hypertension. 5. Hyperlipidemia. 6. History of COPD. 7. History of stroke. 8. History of seizures. She follows with Dr. Sanchez at [facility]. 9. History of GI bleed following angioplasty in 2009 with multiple gastric body ulcers and positive H. pylori. 10. . 11. Cardiac catheterization with stent placement. 12. Left hip surgery. HISTORY OF PRESENT ILLNESS This is a very pleasant 86-year-old right-handed white female who actually came because her daughter told her that she needs to go to the hospital. She reported that she was not feeling well. There is a concern in the records that she had left-sided weakness but patient tells me she has known history of left-sided weakness off and on. Also, she has a history of seizures and the seizures have not been reported in the last 9 months. She is now back to her baseline. Nothing else really showed up. There is some congestive heart failure but nothing major. She did go for an MRI. The MRI showed old right parietooccipital infarct. Also, she has bilateral carotid disease, less than 70% but significant atherosclerosis. She is already on Plavix. She is already on phenobarbital and Vimpat. And, like I said before, she is back to normal. There was a concern about left-sided weakness but the patient says that is old. No falls, no injuries, no seizures. No headaches, no migraine. Nothing to suggest new stroke. PAST MEDICAL HISTORY Unit #: [id number] #: [id number] Patient: MAXWELL CAMPOVERDE As discussed above. PAST SURGICAL HISTORY As discussed above. ALLERGIES 1. Penicillin. 2. Sulfa. 3. Procaine. 4. Cortisone. 5. [place] juice. HOME MEDICATIONS 1. Plavix 75 mg. 2. Vimpat 100 mg b.i.d. 3. Imdur. 4. Lipitor 40 mg. 5. Phenobarbital 32.4 mg p.o. b.i.d. 6. Klor-Con. 7. Multivitamin. 8. Lasix. 9. Melatonin. 10. Donepezil 10 mg h.s. 11. Aspirin 81 mg. SOCIAL HISTORY Apparently she lives with her daughter. Uses a walker occasionally. Lifetime nonsmoker. Denies illicit drugs or alcohol. FAMILY HISTORY Negative for coronary artery disease. Mother had colon cancer, it may not be of much value with her age right now. REVIEW OF SYSTEMS A detailed review of systems was attempted. CONSTITUTIONAL: The patient denies any recent weight issues, fever, chills, rigors. HEENT: No headaches. No double vision, earaches, runny nose, or sore throat. CARDIOVASCULAR: No chest pain, clubbing, cyanosis, orthopnea, or palpitations. PULMONARY: No shortness of air, cough, or expectoration. GASTROINTESTINAL: No nausea, vomiting, diarrhea, or constipation. GENITOURINARY: Denies symptoms. EXTREMITIES: No problems. She has had chronic left side weakness. No back problem. HEMATOLOGIC: No problems. ENDOCRINE: No problems. DERMATOLOGIC: No problems. PSYCHIATRIC: No issues. NEUROLOGIC: Seizure disorder but nothing reported. PHYSICAL EXAMINATION VITAL SIGNS: Temperature 98.1, pulse 72, respirations 16, blood pressure 118/68, O2 saturations were 95% to 97%, weight 47.2 kg. NEUROLOGIC: The patient is awake, she is alert, except for the exact date of the month she is fully oriented. She knows this is Friday in November 2016 and she is at [facility] [place]. She can name, she can follow commands. No Unit #: [id number] #: [id number] Patient: MAXWELL CAMPOVERDE right-left confusion. No finger agnosia. CRANIAL NERVES: Demonstrates full bazan of vision to confrontation. Eye movements are conjugate. I do not see any ptosis. I do not see any nystagmus. Extraocular movements are intact. Sensation on the face and scalp is normal. Strength of muscles of facial expression is normal. Hearing seemed to be intact bilaterally. Tongue was midline, uvula was midline, palate elevations are normal. Head turning and shoulder shrugs were unremarkable. MOTOR: Normal bulk, tone. Strength was 5-/5 all over. Maybe questionable mild weakness, more so on the left, but I am not impressed otherwise. SENSORY: Intact for soft touch and pain sensation. No extinction was seen. Romberg was not evaluated. GAIT: Deferred. REFLEXES: I could not get any reflexes. Toes are equivocal. COORDINATION: Otherwise unremarkable. DIAGNOSTIC STUDIES LABORATORY: Chemistry profile looked okay. Therapeutic levels were not checked. Recently B12 was not checked, previously was 121. LDL was 143 on 09/25/2016. Total cholesterol was 258. Previously on Dilantin, not anymore. White count 8.5, hemoglobin 11.8, hematocrit 33.6, platelet count 263. Urinalysis was unremarkable. IMAGING: MRI shows atrophy in the cerebellar regions which is typical of Dilantin but age could be a factor. IMPRESSION This is a very interesting 86-year-old female with very nonspecific symptoms. I really doubt this is a TIA. She is already on aspirin and Plavix. I will increase her Lipitor. I will check her B12 level and phenobarbital level. Otherwise, I am not planning anything different. Her stenosis was less than 70% with no stroke. That needs to be observed and be evaluated as outpatient. She was seeing Dr. Sanchez who is a stroke doctor so I will observe and see how things go. Call if you have any questions or concerns. As far as I am concerned, she may be discharged later today once the levels are available. I discussed with the patient and her nurse. Dictated by... Alondra Simpson TD: 11/17/2016 22:20 JOB #: [id number] Unit #: [id number] #: [id number] Patient: MAXWELL CAMPOVERDE CONSULTATION REPORT Page 1 of 1 X Елена Sevilla MD CONSULTATION REPORT
--- NOTE | ~2016-11-15 | CT71 ---
[facility] A Service of [facility] RADIOLOGY TEXT RESULTS PATIENT: MAXWELL CAMPOVERDE LOCATION: [facility] : 32 UNIT #: [id number] AGE: [address]: Kendrick Zamorano MD SEX: F ORDER DR: [id number] [place] [id number] [facility]. [place], [place] [address] [id number] E MR#: [id number] Acc #: [id number] NAME: MAXWELL CAMPOVERDE : 1930 SEX: F STUDY DATE/TIME: 11/15/2016 15:16 UNIT: [facility] ROOM: STUDY DESCRIPTION: CT Head Wo Contrast Attending Physician: Madai Webster M.D. Ordering Physician: Ramon Maria M.D. Primary Care Physician: Mohamud Kuhn M.D. MEDICAL IMAGING REPORT This report is preliminary unless electronic signature is present EXAM Head CT, no contrast, 11/15/2016. HISTORY Confusion since this morning. PROCEDURE Routine unenhanced head CT. This CT exam was performed with one or more of the following radiation dose reduction techniques: automatic exposure control, adjustment of mA and/or kV according to patient size, and iterative reconstruction. COMPARISON 07/10/2016 FINDINGS There are chronic ischemic changes, and there is volume loss, but there is no hemorrhage or mass, hydrocephalus, or extraaxial fluid collection. There has been no interval change since 07/10/2016. The skull base and calvaria are unremarkable. IMPRESSION Chronic ischemic changes, but no acute abnormality and no interval change since 07/10/2016. Dictated by... Sriram Jenkins M.D. THIS IS AN ELECTRONICALLY VERIFIED REPORT Sriram Jenkins M.D. at 11/16/2016 10:47 PM TONY/quique [facility] A Service [facility] RADIOLOGY TEXT RESULTS PATIENT: MAXWELL CAMPOVERDE LOCATION: [facility] 303 : 32 UNIT #: [id number] AGE: [address]: Kendrick Zamorano MD SEX: F ORDER DR: TD: 11/15/2016 18:14 JOB #: [id number] MEDICAL IMAGING REPORT Page 1 of 1 COPY
[~2016-11-15 13:09] MED LIST changes: -ACETAMINOPHEN650 M1 PO; -ASPIRIN EC81 M1 PO; -CLOPIDOGREL75 MG PO; -COMPLETE MULTI1 EAC1 PO; -DONEPEZIL HCL10 MG PO; -IMDUR PO; -KCL PO; -KLOR-CON PO; -LIPITOR PO; -MELATONIN1 M1 SL; -NAMENDA XR7 MG PO; -NAMZARIC 14 MG1 EACH PO; -NAMZARIC 28 MG1 EACH PO; -PANTOPRAZOLE SO40 MG PO; -PATIENT'S PHARMACY; -PROTONIX PO; -VICODIN PO; -VIMPAT100 MG PO; -VITAMIN D31000 UNIT PO
[2016-11-15 13:51] LABS: BASOPHIL% 0.5 % (0-2.5); EOSINOPHIL% 0.1 % (0.0-7.0); HEMATOCRIT 33.6 % (35.0-45.0); HEMOGLOBIN 11.2 gm/dL (12.0-16.0); LYMPHOCYTE# 0.9 X10e3 (1.0-3.5); MEAN CELL VOLUME 91.5 FL (83-96); MEAN CORPUSCULAR HEMOGLOBIN 30.5 PG (28-34); MEAN CORPUSCULAR HGB CONC 33.3 g/dL (30-36); MEAN PLATELET VOLUME 6.7 FL (6.5-11.5); MONOCYTE# 0.6 X10e3 (0-1.0); MONOCYTE% 6.6 % (3.0-12.0); NEUTROPHIL# 7.1 X10e3 (1.5-7.1); NEUTROPHIL% 82.8 % (40-75); PLATELET COUNT 263 X10e3 (140-420); RED BLOOD COUNT 3.68 X10e (3.90-5.30); WHITE BLOOD COUNT 8.5 X10e3 (4.0-10.5)
[2016-11-15 14:04] LABS: DIFF IND NO; PROTHROMBIN TIME (PATIENT) 10.3 SECONDS (9.6-11.5)
[2016-11-15 14:18] LABS: ALBUMIN SERUM 3.8 g/dL (3.5-5.0); ALKALINE PHOSPHATASE 145 U/L (32-92); ALT (SGPT) 17 U/L (10-40); AST (SGOT) 24 U/L (10-42); BILIRUBIN,TOTAL 0.5 mg/dL (0.2-2.0); BLOOD UREA NITROGEN 16 mg/dL (9-23); CALCIUM SERUM 9.8 mg/dL (8.4-10.2); CARBON DIOXIDE 27 mmol/L (22-31); CHLORIDE 102 mmol/L (100-111); GLOM FILT RATE Estimated 51.7 mL/min (>60); GLUCOSE FASTING 102 mg/dL (70-110); POTASSIUM 3.8 mmol/L (3.5-5.1); PROTEIN TOTAL SERUM 6.6 g/dL (6.0-8.3); SODIUM 135 mmol/L (135-145)
[2016-11-15 14:27] LABS: BILIRUBIN, DIRECT <0.1 mg/dL (0.0-0.2); BILIRUBIN,INDIRECT 0.4 mg/dL (0.0-0.9)
[2016-11-15 14:41] LABS: URINE SOURCE CLEAN CATCH
[2016-11-15 14:48] LABS: URINE APPEARANCE CLEAR; URINE BILIRUBIN NEG (NEG); URINE BLOOD NEG (NEG); URINE COLOR YELLOW; URINE GLUCOSE NEG (NEG); URINE KETONE NEG (NEG); URINE LEUKOCYTE ESTERASE NEG (NEG); URINE NITRATE NEG (NEG); URINE PROTEIN NEG (NEG); URINE SPECIFIC GRAVITY 1.008 (1.003-1.035); URINE UROBILINOGEN 0.2 MG/DL (NEG)
[2016-11-15 15:05] LABS: CULTURE INDICATED? NO
[2016-11-15] MEDS ORDERED: DONEPEZIL HCL10 MG PO (17:06)
[2016-11-16 12:51] LABS: FOLATE (FOLIC ACID) >23.6 ng/mL (>5.8)
[2016-11-16 13:09] LABS: CHOLESTEROL 184 mg/dL (0-200); HDL CHOLESTEROL 99 mg/dL (35-95); LDL CHOLESTEROL 78 mg/dL (-130); LDL/HDL RATIO 1 RATIO (0-4); TRIGLYCERIDES 35 mg/dL (10-160)
[2016-11-17 05:32] LABS: HEMOGLOBIN 11.8 gm/dL (12.0-16.0); MEAN CELL VOLUME 91.3 FL (83-96); MEAN CORPUSCULAR HEMOGLOBIN 29.9 PG (28-34); MEAN CORPUSCULAR HGB CONC 32.7 g/dL (30-36); MEAN PLATELET VOLUME 7.4 FL (6.5-11.5); RED BLOOD COUNT 3.94 X10e (3.90-5.30); RED CELL DISTRIBUTION WIDTH 13.9 % (11.0-15.5); WHITE BLOOD COUNT 5.4 X10e3 (4.0-10.5)
[2016-11-17 06:18] LABS: BUN/CREATININE RATIO 13.33; CALCIUM SERUM 9.7 mg/dL (8.4-10.2); CREATININE SERUM 0.9 mg/dL (0.6-1.4); GLOM FILT RATE Estimated 58.8 mL/min (>60); POTASSIUM 3.8 mmol/L (3.5-5.1)
[2016-11-17] MEDS ORDERED: ACETAMINOPHEN650 M1 PO (11:48)
[2016-11-17] MEDS ORDERED: VICODIN PO (11:49)
[2016-11-17] MEDS ORDERED: LEVAQUIN PO (11:51)
[2016-11-17] MEDS ORDERED: LOPRESSOR PO (11:53)
[2017-01-07] MEDS ORDERED: VITAMIN D31000 UNIT PO (14:30)
[2017-01-07] MEDS ORDERED: NAMZARIC 14 MG1 EACH PO (14:31)
[2017-02-27] MEDS ORDERED: LIPITOR PO (15:32)
[2017-02-27] MEDS ORDERED: IMDUR PO (15:32)
[2017-02-27] MEDS ORDERED: LASIX20 MG PO (15:32)
[2017-02-27] MEDS ORDERED: PATIENT'S PHARMACY (15:32)
[2017-02-27] MEDS ORDERED: NAMZARIC 28 MG1 EACH PO (15:32)
[2017-02-27] MEDS ORDERED: PANTOPRAZOLE SO40 MG PO (15:33)
[2017-02-27] MEDS ORDERED: PHENOBARB PO (15:33)
[2017-02-27] MEDS ORDERED: CLOPIDOGREL75 MG PO (15:33)
[2017-02-27] MEDS ORDERED: DONEPEZIL HCL10 MG PO (15:33)
[2017-02-27] MEDS ORDERED: VIMPAT100 MG PO (15:33)
[2017-02-27] MEDS ORDERED: KCL PO (15:33)
== END 2016-11-17 17:10 | disposition home or self-care (01) ==
LOC: CED 13:09 → CEDOF 23:00 → C3A PCU 23:00 → CEDOF 23:17 → CED 23:17 → C3A PCU 11-16 12:54
PROVIDERS: Emergency Medicine; Internal Medicine; Psychiatry & Neurology Neurology
DX: R53.1 Weakness (principal); R41.82 Altered mental status, unspecified; I25.10 Atherosclerotic heart disease of native coronary artery without angina pectoris; Z95.5 Presence of coronary angioplasty implant and graft; I35.1 Nonrheumatic aortic (valve) insufficiency; I11.0 Hypertensive heart disease with heart failure; I50.30 Unspecified diastolic (congestive) heart failure; J44.9 Chronic obstructive pulmonary disease, unspecified; G40.909 Epilepsy, unspecified, not intractable, without status epilepticus; E03.9 Hypothyroidism, unspecified; E78.5 Hyperlipidemia, unspecified; F03.90 Unspecified dementia, unspecified severity, without behavioral disturbance, psychotic disturbance, mood disturbance, and anxiety; I65.23 Occlusion and stenosis of bilateral carotid arteries; I73.9 Peripheral vascular disease, unspecified
CPT/HCPCS: 36415; 70450; 70496; 70498; 70551; 71010; 80048; 80061; 80076; 81003; 82607; 82746; 82947; 83036; 85025; 85027; 85610; 93005; 96360; 97163; 99285; G0378; G8978-GP; G8979-GP; G8980-GP; Q9967

== ENCOUNTER 2017-01-08 06:15 | Observation (INO) | payer MEDICARE ==
[~2017-01-08] VITALS: Ht 157.5 cm; Wt 47.7 kg
--- NOTE | ~2017-01-08 | EKG ---
PATIENT: MAXWELL CAMPOVERDE UNIT #: [id number] Ventricular Rate: 73 BPM Atrial Rate: 73 BPM P-R Interval: 156 ms QRS Duration: 78 ms Q-T Interval: 420 ms QTC Calculation(Bezet): 462 ms P [place]: 10 degrees Calculated R [place]: -19 degrees Calculated T [place]: 25 degrees Diagnosis Line: Normal sinus rhythm Diagnosis Line: Normal ECG Diagnosis Line: When compared with ECG of 15-NOV-2016 13:55, Diagnosis Line: No significant change was found Diagnosis Line: Confirmed by ANGELY TOUSSAINT MD ([id number]) on 01/08/2017 Diagnosis Line: 7:43:39 PM INTERPRETING MD: NORBERT BERRIOS
--- NOTE | ~2017-01-08 | EKG ---
PATIENT: MAXWELL CAMPOVERDE UNIT #: [id number] Ventricular Rate: 60 BPM Atrial Rate: 60 BPM P-R Interval: 164 ms QRS Duration: 72 ms Q-T Interval: 430 ms QTC Calculation(Bezet): 430 ms Calculated R [place]: -17 degrees Calculated T [place]: 42 degrees Diagnosis Line: Normal sinus rhythm Diagnosis Line: Normal ECG Diagnosis Line: When compared with ECG of 08-JAN-2017 07:07, Diagnosis Line: (unconfirmed) Diagnosis Line: No significant change was found Diagnosis Line: Confirmed by ANGELY TOUSSAINT MD ([id number]) on 01/08/2017 Diagnosis Line: 7:45:12 PM INTERPRETING MD: NORBERT BERRIOS
--- NOTE | ~2017-01-08 | EKG ---
PATIENT: MAXWELL CAMPOVERDE UNIT #: [id number] Ventricular Rate: 66 BPM Atrial Rate: 66 BPM P-R Interval: 160 ms QRS Duration: 76 ms Q-T Interval: 412 ms QTC Calculation(Bezet): 431 ms P [place]: -15 degrees Calculated R [place]: -14 degrees Calculated T [place]: 96 degrees Diagnosis Line: Sinus rhythm with Premature atrial complexes Diagnosis Line: Nonspecific T wave abnormality Diagnosis Line: Borderline ECG Diagnosis Line: When compared with ECG of 08-JAN-2017 10:14, Diagnosis Line: Premature atrial complexes are now Present Diagnosis Line: Confirmed by ANGELY TOUSSAINT MD ([id number]) on 01/11/2017 Diagnosis Line: 8:12:03 AM INTERPRETING MD: NORBERT BERRIOS
--- NOTE | ~2017-01-08 | DS ---
Unit #: [id number] #: [id number] Patient: MAXWELL CAMPOVERDE [id number] [facility]. [address] [address] [id number] I MR#: [id number] NAME: MAXWELL CAMPOVERDE ROOM: 571 Age: 86 Sex: F Admission Date: 01/08/2017 : 1930 Discharge Date: 01/09/2017 Attending Physician: Deshawn Sosa M.D. Referring Physician: Deshawn Sosa M.D. Primary Care Physician: Mohamud Kuhn M.D. DISCHARGE SUMMARY DISCHARGE DIAGNOSES 1. Unstable angina. 2. Status post [place] balloon angioplasty to In-stent stenosis to the distal left circumflex artery. FFR to the proximal right coronary artery 0.95, non-significant. 3. Hypertension. 4. Hyperlipidemia. 5. Preserved left ventricular systolic function with ejection fraction of 60% to 65%. 6. Previously placed stent to the proximal LAD and mid LAD In-stent stenosis, August 2009. Had PCI with drug-eluting stent to the circumflex artery, also in 2009. 7. Anemia, questionable secondary to hemodilution. 8. 2D echocardiogram 09/24/2016, showed ejection fraction of 55% to 60% with moderate aortic regurgitation, mild mitral regurgitation, [id number] tricuspid regurgitation. Right ventricular systolic pressure at 35 mmHg. Mildly to moderately dilated left atrium. Mildly enlarged right atrium. DISCHARGE MEDICATIONS 1. Lipitor 80 mg q.h.s. 2. Multivitamin one tablet daily 3. Melatonin 1 mg q.h.s. 4. Aspirin 81 mg daily 5. Plavix 75 mg daily 6. Vimpat 100 mg b.i.d. 7. Phenobarbital 32.4 mg b.i.d. 8. Namenda/Aricept 14/10 mg q.h.s. 9. Furosemide 20 mg daily 10. Potassium chloride 10 mEq daily 11. Imdur 30 mg daily 12. Nitroglycerin 4 mg sublingual q.5 minutes x3 p.r.n. chest pain 13. Vitamin D3 1000 units b.i.d. HOSPITAL COURSE This is an 86-year-old white female, who was admitted to the hospital in August 2016 because of chest pain. She had Lexiscan Cardiolite stress test in September 2016 which showed a suspicious stress-induced ischemia involving the anterior apical wall of the left ventricle. She underwent cardiac catheterization on September 25, and was found to have 70% to 75% stenosis to the first obtuse marginal branch. The stent to the proximal LAD was widely patent. There was a mid LAD stenosis of 40% to 50% In-stent. She was continued on medical therapy. Since that time, the patient has had a Unit #: [id number] #: [id number] Patient: MAXWELL CAMPOVERDE recurrent chest pain, despite medical therapy and was presented for PCI. The patient 75% In-stent stenosis to the distal circumflex artery was reduced to 0% using 2.75 noncompliant balloon. The proximal right coronary artery had 60% stenosis with FFR of 0.95 which was insignificant. No procedure was done on the right coronary artery. The patient did well in the post-recovery phase. She was continued on dual antiplatelet therapy with aspirin and Plavix. She had no recurrent chest pain. There was a drop of her hemoglobin from 11.4 to 9.3. She had no evidence of bleeding. Her right radial site is healing well with only a small amount of bruising. There is no hematoma. She has no loss of sensation and has a 3+ pulse. Her heart rate and blood pressure are stable. She is stable for discharge today. ASSESSMENT VITAL SIGNS: Blood pressure 113/62, heart rate 59, temperature 99.2. CHEST: Clear to auscultation. HEART: S1 and S2, regular rate and rhythm. ABDOMEN: Soft, bowel sounds are present. Nontender. EXTREMITIES: Without leg edema. Right radial with 3+ pulse with small amount of bruising, no hematoma. DIAGNOSTIC STUDIES LABORATORY: White count 5.8, hemoglobin 9.3, hematocrit 27.9, platelet count is 234. Sodium 139, potassium 3.7, BUN 13, creatinine is 0.9, glucose 80. CK total 81, MB 4.8, MB index 5.9, cholesterol 151, triglycerides 52, LDL 55, HDL 86. CARDIOVASCULAR STUDIES: Electrocardiogram shows normal sinus rhythm, a premature atrial complex. There is nonspecific ST-wave abnormality. DISCHARGE INSTRUCTIONS 1. The patient will be discharged home today. 2. Followup with Dr. Sosa on February 24 at 2:00 p.m. 3. Follow up with primary care physician in [id number]-[id number] weeks. 4. [facility] will obtain CBC and BMP on 01/22/2017 to evaluate for contrast-induced nephropathy and for anemia. 5. The patient will continue on dual antiplatelet therapy indefinitely. She is on statin and beta alexys. Dictated by... Nikki Naqvi/aristides TD: 01/10/2017 10:07 JOB #: [id number] Unit #: [id number] #: [id number] Patient: MAXWELL CAMPOVERDE DISCHARGE SUMMARY Page 1 of 1 X Luis Little APRN X DISCHARGE SUMMARY
[~2017-01-08 06:15] MED LIST changes: +ACETAMINOPHEN650 M1 PO; +DONEPEZIL HCL10 MG PO; +NAMZARIC 14 MG1 EACH PO; +VICODIN PO; +VITAMIN D31000 UNIT PO
[2017-01-08 06:53] LABS: HEMATOCRIT 33.7 % (35.0-45.0); HEMOGLOBIN 11.4 gm/dL (12.0-16.0); MEAN CELL VOLUME 89.7 FL (83-96); MEAN CORPUSCULAR HEMOGLOBIN 30.2 PG (28-34); MEAN CORPUSCULAR HGB CONC 33.7 g/dL (30-36); MEAN PLATELET VOLUME 6.2 FL (6.5-11.5); RED BLOOD COUNT 3.75 X10e (3.90-5.30); RED CELL DISTRIBUTION WIDTH 14.5 % (11.0-15.5); WHITE BLOOD COUNT 5.5 X10e3 (4.0-10.5)
[2017-01-08 07:06] LABS: PARTIAL THROMBOPLASTIN TIME 22.8 SECONDS (23.5-31.3); PROTHROMBIN TIME (PATIENT) 10.7 SECONDS (10.0-11.7)
[2017-01-08 07:21] LABS: CALCIUM SERUM 10.1 mg/dL (8.4-10.2); GLOM FILT RATE Estimated 51.7 mL/min (>60); POTASSIUM 4.2 mmol/L (3.5-5.1)
[2017-01-08] MEDS ORDERED: CLOPIDOGREL75 MG PO (17:00)
[2017-01-08] MEDS ORDERED: VIMPAT100 MG PO (17:01)
[2017-01-08] MEDS ORDERED: LIPITOR PO (17:02)
[2017-01-08] MEDS ORDERED: IMDUR-ER30 M1 PO (17:02)
[2017-01-08] MEDS ORDERED: PHENOBARBITAL16.2 MG PO (17:03)
[2017-01-08] MEDS ORDERED: KLOR-CON PO (17:03)
[2017-01-08] MEDS ORDERED: LASIX20 MG PO (17:05)
[2017-01-08] MEDS ORDERED: COMPLETE MULTI1 EAC1 PO (17:05)
[2017-01-08] MEDS ORDERED: MELATONIN1 M1 SL (17:06)
[2017-01-08] MEDS ORDERED: ASPIRIN EC81 M1 PO (17:07)
[2017-01-08 18:51] LABS: ANGIO %MB 5.6 % (0.0-4.0); ANGIO MB 4.6 ng/ml
[2017-01-09 02:05] LABS: ANGIO %MB 5.9 % (0.0-4.0); ANGIO MB 4.8 ng/ml
[2017-01-09 05:20] LABS: BASOPHIL# 0.1 X10e3 (0-0.3); BASOPHIL% 1.1 % (0-2.5); EOSINOPHIL% 0.8 % (0.0-7.0); HEMATOCRIT 27.9 % (35.0-45.0); LYMPHOCYTE# 1.3 X10e3 (1.0-3.5); LYMPHOCYTE% 22.2 % (17.0-45.0); MEAN CELL VOLUME 89.4 FL (83-96); MEAN CORPUSCULAR HGB CONC 33.5 g/dL (30-36); MONOCYTE# 0.6 X10e3 (0-1.0); MONOCYTE% 9.6 % (3.0-12.0); NEUTROPHIL# 3.9 X10e3 (1.5-7.1); NEUTROPHIL% 66.3 % (40-75); PLATELET COUNT 234 X10e3 (140-420); RED BLOOD COUNT 3.12 X10e (3.90-5.30); RED CELL DISTRIBUTION WIDTH 14.4 % (11.0-15.5); WHITE BLOOD COUNT 5.9 X10e3 (4.0-10.5)
[2017-01-09 05:37] LABS: DIFF IND NO; HEMOGLOBIN 9.3 gm/dL (12.0-16.0)
[2017-01-09 06:15] LABS: BUN/CREATININE RATIO 14.44; CALCIUM SERUM 9.6 mg/dL (8.4-10.2); CREATININE SERUM 0.9 mg/dL (0.6-1.4); GLOM FILT RATE Estimated 58.8 mL/min (>60); POTASSIUM 3.7 mmol/L (3.5-5.1)
[2017-01-09] MEDS ORDERED: NITROGLYGERIN0.4 MG SL (15:18)
[2017-02-27] MEDS ORDERED: LIPITOR PO (15:32)
[2017-02-27] MEDS ORDERED: IMDUR PO (15:32)
[2017-02-27] MEDS ORDERED: LASIX20 MG PO (15:32)
[2017-02-27] MEDS ORDERED: PATIENT'S PHARMACY (15:32)
[2017-02-27] MEDS ORDERED: NAMZARIC 28 MG1 EACH PO (15:32)
[2017-02-27] MEDS ORDERED: CLOPIDOGREL75 MG PO (15:33)
[2017-02-27] MEDS ORDERED: PANTOPRAZOLE SO40 MG PO (15:33)
[2017-02-27] MEDS ORDERED: DONEPEZIL HCL10 MG PO (15:33)
[2017-02-27] MEDS ORDERED: KCL PO (15:33)
[2017-02-27] MEDS ORDERED: VIMPAT100 MG PO (15:33)
[2017-02-27] MEDS ORDERED: PHENOBARB PO (15:33)
== END 2017-01-09 15:46 | disposition home or self-care (01) ==
LOC: CCVL 06:15 → CPACUOF 06:56 → CCVL 08:00 → C5C 09:30 → CPACUOF 09:30 → C5C 13:57 → CPACUOF 13:57 → C5C 01-09 15:46
PROVIDERS: Internal Medicine Cardiovascular Disease
DX: T82.855A Stenosis of coronary artery stent, initial encounter (principal); I25.110 Atherosclerotic heart disease of native coronary artery with unstable angina pectoris; Z95.5 Presence of coronary angioplasty implant and graft; I10 Essential (primary) hypertension; E78.5 Hyperlipidemia, unspecified; D64.9 Anemia, unspecified; I08.3 Combined rheumatic disorders of mitral, aortic and tricuspid valves; N28.9 Disorder of kidney and ureter, unspecified
CPT/HCPCS: 36415; 80048; 80061; 82550; 82553; 85025; 85027; 85347; 85610; 85730; 93005; C1725; C1769; C1887; C1894; G0378; J0153; J0461; J1327; J1644; J2250; J2270; J3010

== ENCOUNTER 2017-01-21 10:20 | Observation (INO) | payer MEDICARE ==
[~2017-01-21] VITALS: Ht 160 cm; Wt 54.5 kg
--- NOTE | ~2017-01-21 | CR72 ---
[facility] A Service of [facility] RADIOLOGY TEXT RESULTS PATIENT: MAXWELL CAMPOVERDE LOCATION: [facility] 571-01 : 32 UNIT #: [id number] AGE: [address]: Celena Chávez MD SEX: F ORDER DR: [id number] [facility] [address] [facility]. [place], [place] [address] [id number] E MR#: [id number] Acc #: [id number] NAME: MAXWELL CAMPOVERDE : 1930 SEX: F STUDY DATE/TIME: 01/21/2017 11:01 UNIT: [facility] ROOM: STUDY DESCRIPTION: CR Chest Single View Portable Attending Physician: Santo Andersen M.D. Ordering Physician: Santo Andersen M.D. Primary Care Physician: Mohamud Kuhn M.D. MEDICAL IMAGING REPORT This report is preliminary unless electronic signature is present EXAM Portable chest x-ray 01/21/2017 HISTORY Chest pain. Left side chest pain, began this a.m. Prior history of seizures and CVA. FINDINGS AP radiograph of the chest is presented. Marked thoracic dextroscoliosis unchanged. No acute appearing bony abnormality. Stable cardiac enlargement. Stable elevation of left hemidiaphragm. Very large hiatal hernia unchanged. Lungs well inflated. There is no evidence of acute infectious or inflammatory disease, pleural effusion or pneumothorax. Calcified granulomata right lower lung zone. Chronic appearing bilateral rib fractures. No clearly acute bony abnormality. Dictated by... Prashanth Cates M.D. THIS IS AN ELECTRONICALLY VERIFIED REPORT Prashanth Cates M.D. at 01/23/2017 2:47 PM SOO/zeke TD: 01/21/2017 13:10 JOB #: [id number] MEDICAL IMAGING REPORT Page 1 of 1 COPY
--- NOTE | ~2017-01-21 | HP ---
Unit #: [id number] #: [id number] Patient: MAXWELL SÁNCHEZ [id number] [facility] [address] [place], [place] [address] [id number] MR#: [id number] NAME: MAXWELL SÁNCHEZ ROOM: 571 Age: 86 Sex: F Admission Date: 01/21/2017 : 1930 Attending Physician: Celena Chávez M.D. Primary Care Physician: Mohamud Kuhn M.D. HISTORY AND PHYSICAL HISTORY OF PRESENT ILLNESS This is an 86-year-old white female who is known to our group. She was just here at [facility] and was discharged on January 09, 2017. Dr. Sosa performed a heart catheterization on her at that time as she was here with chest pain. The results were as follows: She had two patent stents in the LAD. She had a 75% in-stent stenosis in the distal circumflex and 50-60% stenosis in the proximal RCA. Dr. Sosa did perform PCI with balloon dilatation only of the in-stent stenosis on the circumflex, and he did an FFR across the proximal RCA that measured 0.95 suggesting no significant stenosis. His recommendation was to continue dual antiplatelet therapy with aspirin and Plavix and also with long-acting nitrates and beta blockers and a statin. Patient was not discharged home on an JEANE inhibitor because of her problems in the past with renal insufficiency. Patient prior to that heart catheterization had a history of having stents to the mid LAD and mid left circumflex in 2008 when she was in [place], and then again in 2009 she had some repeat stenting. The patient also has a history of hypertension, anemia, previous stroke in the past, peripheral vascular disease, moderate aortic regurgitation, seizures, and hypothyroidism. Patient has been doing fairly well since her discharge. She has home health seeing her and also physical therapy. Patient got up this morning and was doing fine. She ate breakfast and after she walked into the living room and was sitting on the couch she developed pain across her chest mostly under both breasts. She denied any radiation up into the neck or bilateral jaw, shoulders, arms, or elbows. She said that she was having a lot of saliva, and she just felt nauseated. She did not vomit and no shortness of breath. Denied any dizziness and denied any diaphoresis. Patient's daughter said she gave her sublingual nitroglycerin and it eased off the pain somewhat. The patient said she belched a few times. They called EMS in the meantime. They arrived, and she received four baby aspirin and then was transported to the emergency room where here she says the pain has eased off. In the emergency room, patient's blood pressure is 120/72, heart rate 93, respirations 22, temperature 98.1, and O2 saturations 97% on room air. Her EKG shows normal sinus rhythm with nothing acute. Initial cardiac enzymes are negative. Patient will be admitted for further evaluation and observation. PAST MEDICAL HISTORY 1. Coronary artery disease with previous myocardial infarction in 2008 when she was in [place], status post angioplasty and stents to the mid LAD and mid circumflex. Unit #: [id number] #: [id number] Patient: MAXWELL SÁNCHEZ 2. In 2009, she had a repeat cardiac cath that showed in-stent stenosis of the circumflex, status post PTCA and status post Cypher drug-eluting stent for the in-stent stenosis in the mid left circumflex, proximal LAD, and mid LAD. 3. In September 2016, she had an abnormal stress test showing suspicious stress-induced, so a cardiac cath was done by Dr. Sosa on September 25 and was found to have a 70-75% stenosis in the first obtuse marginal branch, the stent to the proximal LAD was widely patent, and the mid LAD with 40-50% in-stent stenosis. Medical management with recurrent chest pain despite medical therapy. Dr. Sosa performed a repeat cardiac catheterization and findings were patent stents in the LAD, 75% in-stent stenosis distal circumflex, and 50-60% stenosis in the proximal RCA. Status post PCI with plain old balloon dilatation of the (1) stent stenosis in the circumflex, FFR across the proximal RCA measured 0.95 suggesting no significant stenosis. Recommendation, dual antiplatelet therapy with aspirin and Plavix and antianginal therapy with nitrates, beta alexys, and statin. No JEANE inhibitor because of renal insufficiency. 4. On September 24, 2016, a 2D echo with LVEF of 55% to 60%, moderate aortic regurgitation, mild mitral regurgitation, mild to moderate tricuspid regurgitation, with elevated RVSP of 35 mmHg, mild to moderate dilated left atrium, and mildly elevated right atrium. 5. Hypertension. 6. Hyperlipidemia. 7. Anemia. 8. Previous stroke in the past. 9. Peripheral vascular disease, status post right carotid endarterectomy. 10. Chronic obstructive pulmonary disease but lifelong nonsmoker. 11. History of seizures. 12. Hypothyroidism. 13. Nonsmoker. 14. Mild dementia. HOME MEDICATIONS These are what are listed, but I am getting this off her Discharge Summary from January (2) 2016. 1. Lipitor 80 mg p.o. at bedtime. 2. Multivitamin 1 tablet daily. 3. Melatonin 1 mg at bedtime. 4. Aspirin 81 mg daily. 5. Plavix 75 mg daily. 6. Vimpat 100 mg p.o. twice daily. 7. Phenobarbital 32.4 mg p.o. twice daily. 8. Namenda/Aricept 14/10 mg 1 tablet at bedtime. 9. Furosemide 20 mg p.o. daily. 10. Potassium chloride 10 mEq p.o. daily. 11. Imdur 30 mg p.o. daily. 12. Nitrostat 4 mg sublingual every 5 minutes x3 p.r.n. chest pain. 13. Vitamin D3 at 1000 units p.o. twice daily. ALLERGIES Penicillin, sulfonamides, procaine from Novocain, cortisone, orange juice, and bananas. SOCIAL HISTORY Patient is currently staying with her daughter. She has home health. She uses a walker and a cane. She is a lifelong nonsmoker and no alcohol or illicit drug abuse. Unit #: [id number] #: [id number] Patient: MAXWELL SÁNCHEZ FAMILY HISTORY Her mother had colon cancer. Her parents and sibling with no coronary artery disease reported. REVIEW OF SYSTEMS CONSTITUTIONAL: Denies fever or chills. No recent weight gain or weight loss. HEENT: Denies headache or dizziness. No visual or hearing changes. NECK: No lymphadenopathy or thyromegaly and no difficulty swallowing. CARDIOVASCULAR: Chest pain present. Denies palpitations. Chronic lower extremity edema of 1+. PULMONARY: Denies shortness of breath and denies paroxysmal nocturnal dyspnea or orthopnea. GASTROINTESTINAL: Denies nausea, vomiting, diarrhea, or abdominal pain. NEUROLOGICAL: No focal weakness reported. No neuro deficits. PHYSICAL EXAMINATION GENERAL: Ms. Sánchez is an 86-year-old white female in no acute respiratory distress. She is awake, alert, and oriented, and answers most questions appropriately. VITAL SIGNS: Blood pressure 139/62, heart rate 68, and O2 saturations 96% on room air. NECK: Trachea midline. No thyromegaly or lymphadenopathy. Normal carotid upstrokes. No jugular venous distention. HEART: S1 and S2, regular rate and rhythm. A soft systolic murmur over aortic region, left sternal border. LUNGS: Diminished but otherwise clear. ABDOMEN: Soft and nontender. EXTREMITIES: Pedal pulses are palpable with 1+ pedal edema. DIAGNOSTIC STUDIES LABORATORY: Glucose is 143, BUN 12, creatinine 1.1, eGFR 46.1, sodium 138, potassium 3.5, chloride 102, CO2 is 28, calcium 9.6, total protein 6.4, albumin 3.6, bilirubin total 0.4, AST 30, ALT 25, and alkaline phosphatase is 137. WBC is 5, hemoglobin 9.5, hematocrit 28.2, and platelets of 415,000. Initial cardiac enzymes: CK-MB is 1.6 and troponin less than 0.06; CK-MB is 1.1 and troponin less than 0.05. IMAGING: Chest x-ray shows marked thoracic dextroscoliosis unchanged. Very large hiatal hernia. Lungs well inflated. No evidence of acute infection or inflammatory disease, pleural effusions, or pneumothorax. Chronic-appearing bilateral rib fractures. CARDIOLOGY: EKG shows normal sinus rhythm with ventricular rate 77 beats per minute, occasional premature atrial contraction, slow R wave progression, and questionable Q wave in lead III. IMPRESSION 1. Chest pain of questionable etiology with history of coronary artery disease with recent catheterization. See details in History of Present Illness. 2. Hypertension. 3. Hyperlipidemia. 4. Anemia. 5. Previous stroke. 6. Chronic obstructive pulmonary disease but lifelong nonsmoker. 7. History of seizures. Unit #: [id number] #: [id number] Patient: MAXWELL SÁNCHEZ 8. Hypothyroidism. 9. Left ventricular ejection fraction of 55% to 60% with moderate aortic regurgitation, mild to moderate tricuspid regurgitation, and mild mitral regurgitation. 10. Peripheral vascular disease, status post right carotid endarterectomy. 11. Mild dementia. PLAN 1. Patient's daughter is concerned that her chest pain could be her heart. But after talking with the patient at length and noticing on her chest x-ray she has a very large hiatal hernia and that the pain happened after she ate breakfast and took her pills, it may likely be more GI in nature. Will start the patient on Protonix 40 mg p.o. b.i.d. Continue to monitor cardiac enzymes and EKG and will if they remain negative, we will not proceed with any further cardiac workup. 2. Continue her on aspirin, statin, dual antiplatelet therapy using the aspirin and Plavix, along with long-acting nitrate. It is noted that patient is not on a beta alexys for some reason. Will try to investigate that to see if she was maybe hypotensive and/or sinus bradycardia. 3. On exam, there are no signs or symptoms of acute congestive heart failure. 4. Will have OT perform a speech and swallow study to evaluate for any issues. 5. Further recommendations pending per Dr. Chávez. The patient wants to be discharged home tomorrow if there is no further necessary testing. She prefers conservative medical management. 1. Dictated by Melissa Abdullahi A.P.R.N. for Alondra Mackenzie TD: 01/21/2017 17:59 JOB #: [id number] HISTORY AND PHYSICAL Page 1 of 1 X Melissa Abdullahi APRN X HISTORY AND PHYSICAL
--- NOTE | ~2017-01-21 | EKG ---
PATIENT: MAXWELL CAMPOVERDE UNIT #: [id number] Ventricular Rate: 65 BPM Atrial Rate: 65 BPM P-R Interval: 152 ms QRS Duration: 70 ms Q-T Interval: 416 ms QTC Calculation(Bezet): 432 ms P [place]: 16 degrees Calculated R [place]: 14 degrees Calculated T [place]: 83 degrees Diagnosis Line: Normal sinus rhythm Diagnosis Line: Nonspecific T wave abnormality Diagnosis Line: Abnormal ECG Diagnosis Line: Diagnosis Line: Confirmed by RANDI DUVALL MD ([id number]) on Diagnosis Line: 01/22/2017 10:38:44 PM INTERPRETING MD: CLAUDE
--- NOTE | ~2017-01-21 | EKG ---
PATIENT: MAXWELL CAMPOVERDE UNIT #: [id number] Ventricular Rate: 77 BPM Atrial Rate: 77 BPM P-R Interval: 158 ms QRS Duration: 66 ms Q-T Interval: 370 ms QTC Calculation(Bezet): 418 ms P [place]: 33 degrees Calculated R [place]: -22 degrees Calculated T [place]: 30 degrees Diagnosis Line: Sinus rhythm with Premature supraventricular Diagnosis Line: complexes Diagnosis Line: Nonspecific T wave abnormality Diagnosis Line: Abnormal ECG Diagnosis Line: When compared with ECG of 09-JAN-2017 06:20, Diagnosis Line: Nonspecific T wave abnormality no longer evident Diagnosis Line: in Lateral leads Diagnosis Line: Confirmed by RANDI DUVALL MD ([id number]) on Diagnosis Line: 01/21/2017 3:31:59 PM INTERPRETING MD: CLAUDE
[~2017-01-21 10:20] MED LIST changes: +ASPIRIN EC81 M1 PO; +CLOPIDOGREL75 MG PO; +COMPLETE MULTI1 EAC1 PO; +KLOR-CON PO; +LIPITOR PO; +MELATONIN1 M1 SL; +VIMPAT100 MG PO
[2017-01-21 11:18] LABS: BASOPHIL# 0.1 X10e3 (0-0.3); BASOPHIL% 1.3 % (0-2.5); EOSINOPHIL# 0.1 X10e3 (0-0.7); EOSINOPHIL% 1.3 % (0.0-7.0); HEMATOCRIT 28.2 % (35.0-45.0); HEMOGLOBIN 9.5 gm/dL (12.0-16.0); LYMPHOCYTE% 20.7 % (17.0-45.0); MEAN CELL VOLUME 92.2 FL (83-96); MEAN CORPUSCULAR HGB CONC 33.7 g/dL (30-36); MEAN PLATELET VOLUME 5.9 FL (6.5-11.5); MONOCYTE# 0.5 X10e3 (0-1.0); MONOCYTE% 10.2 % (3.0-12.0); NEUTROPHIL# 3.4 X10e3 (1.5-7.1); NEUTROPHIL% 66.5 % (40-75); PLATELET COUNT 415 X10e3 (140-420); RED BLOOD COUNT 3.06 X10e (3.90-5.30); RED CELL DISTRIBUTION WIDTH 16.2 % (11.0-15.5)
[2017-01-21 11:18] LABS: POC - CKMB 1.6 ng/mL (0.0-7.9); POC - TROPONIN <0.05 ng/mL (<=0.05)
[2017-01-21 11:22] LABS: DIFF IND NO
[2017-01-21 11:23] LABS: PARTIAL THROMBOPLASTIN TIME 20.8 SECONDS (23.5-31.3); PROTHROMBIN TIME (PATIENT) 10.7 SECONDS (10.0-11.7)
[2017-01-21 11:39] LABS: ALBUMIN SERUM 3.6 g/dL (3.5-5.0); BILIRUBIN, DIRECT 0.1 mg/dL (0.0-0.2); BILIRUBIN,INDIRECT 0.3 mg/dL (0.0-0.9); BILIRUBIN,TOTAL 0.4 mg/dL (0.2-2.0); BUN/CREATININE RATIO 10.9; CALCIUM SERUM 9.6 mg/dL (8.4-10.2); CREATININE SERUM 1.1 mg/dL (0.6-1.4); GLOM FILT RATE Estimated 46.1 mL/min (>60); POTASSIUM 3.5 mmol/L (3.5-5.1); PROTEIN TOTAL SERUM 6.4 g/dL (6.0-8.3)
[2017-01-21 12:55] LABS: POC - CKMB 1.1 ng/mL (0.0-7.9); POC - TROPONIN <0.05 ng/mL (<=0.05)
[2017-01-21] MEDS ORDERED: PHENOBARB PO (14:46)
[2017-01-21] MEDS ORDERED: DONEPEZIL HCL10 MG PO (14:46)
[2017-01-21] MEDS ORDERED: KCL PO (14:47)
[2017-01-21] MEDS ORDERED: PATIENT'S PHARMACY (14:48)
[2017-01-21 17:50] LABS: CK TOTAL 55 IU/L (26-140)
[2017-01-21] MEDS ORDERED: PHENOBARBITAL16.2 MG PO (20:51)
[2017-01-21] MEDS ORDERED: NAMZARIC 28 MG1 EACH PO (20:52)
[2017-01-21] MEDS ORDERED: NAMENDA XR7 MG PO (20:53)
[2017-01-22] LABS: CK TOTAL 54 IU/L (26-140)
[2017-01-22 07:10] LABS: HEMATOCRIT 27.3 % (35.0-45.0); HEMOGLOBIN 9.3 gm/dL (12.0-16.0); MEAN CELL VOLUME 91.3 FL (83-96); MEAN CORPUSCULAR HEMOGLOBIN 31.1 PG (28-34); MEAN PLATELET VOLUME 6.1 FL (6.5-11.5); RED BLOOD COUNT 2.99 X10e (3.90-5.30); RED CELL DISTRIBUTION WIDTH 16.2 % (11.0-15.5); WHITE BLOOD COUNT 5.1 X10e3 (4.0-10.5)
[2017-01-22 07:43] LABS: CALCIUM SERUM 9.7 mg/dL (8.4-10.2); GLOM FILT RATE Estimated 51.7 mL/min (>60); POTASSIUM 4.5 mmol/L (3.5-5.1)
[2017-01-22] MEDS ORDERED: PROTONIX PO (12:18)
[2017-02-27] MEDS ORDERED: NAMZARIC 28 MG1 EACH PO (15:32)
[2017-02-27] MEDS ORDERED: LASIX20 MG PO (15:32)
[2017-02-27] MEDS ORDERED: LIPITOR PO (15:32)
[2017-02-27] MEDS ORDERED: IMDUR PO (15:32)
[2017-02-27] MEDS ORDERED: PATIENT'S PHARMACY (15:32)
[2017-02-27] MEDS ORDERED: PANTOPRAZOLE SO40 MG PO (15:33)
[2017-02-27] MEDS ORDERED: KCL PO (15:33)
[2017-02-27] MEDS ORDERED: CLOPIDOGREL75 MG PO (15:33)
[2017-02-27] MEDS ORDERED: VIMPAT100 MG PO (15:33)
[2017-02-27] MEDS ORDERED: PHENOBARB PO (15:33)
[2017-02-27] MEDS ORDERED: DONEPEZIL HCL10 MG PO (15:33)
== END 2017-01-22 16:45 | disposition home or self-care (01) ==
LOC: CED 10:20 → CEDOF 14:10 → CED 15:36 → CEDOF 16:32 → C5C 16:32
PROVIDERS: Emergency Medicine; Internal Medicine Cardiovascular Disease
DX: R07.9 Chest pain, unspecified (principal); I25.10 Atherosclerotic heart disease of native coronary artery without angina pectoris; I25.2 Old myocardial infarction; I34.0 Nonrheumatic mitral (valve) insufficiency; I36.1 Nonrheumatic tricuspid (valve) insufficiency; I10 Essential (primary) hypertension; E78.5 Hyperlipidemia, unspecified; D64.9 Anemia, unspecified; I73.9 Peripheral vascular disease, unspecified; J44.9 Chronic obstructive pulmonary disease, unspecified; E03.9 Hypothyroidism, unspecified; F03.90 Unspecified dementia, unspecified severity, without behavioral disturbance, psychotic disturbance, mood disturbance, and anxiety; Z86.73 Personal history of transient ischemic attack (TIA), and cerebral infarction without residual deficits; Z95.5 Presence of coronary angioplasty implant and graft; Z86.69 Personal history of other diseases of the nervous system and sense organs; Z79.82 Long term (current) use of aspirin; Z79.02 Long term (current) use of antithrombotics/antiplatelets; Z79.899 Other long term (current) drug therapy; Z88.0 Allergy status to penicillin; Z88.8 Allergy status to other drugs, medicaments and biological substances; Z88.2 Allergy status to sulfonamides
CPT/HCPCS: 36415; 71010; 80048; 80076; 82550; 82553; 84484; 85025; 85027; 85610; 85730; 92610; 93005; 99285; G0378; G8996-GN; G8997-GN; G8998-GN